=== PATIENT | female | born 1960 | race Caucasian/White ===

== ENCOUNTER 2017-05-22 21:36 | Emergency (ER) | payer MEDICAID, SELFPAY ==
[2017-05-22 21:37] VITALS: BP 158/117; PULSE 89; RESP 15; TEMP 36.7; BMI 40.4
--- NOTE | 2017-05-22 21:57 | RAD_ITS ---
STUDY: X-RAY - LEFT HAND REASON FOR EXAM: Female, 57 years old. No known injury with pain and swelling left hand and wrist. TECHNIQUE: 3 view(s) of the hand. COMPARISON: None. FINDINGS: Normal radiocarpal articulation. Normal distal radioulnar joint. Normal visualized carpal bones. Normal carpal articulations Normal carpometacarpal articulation of the thumb. Normal second through fifth carpometacarpal joints. Normal metacarpi. Normal metacarpophalangeal joint of the thumb. Normal interphalangeal joint of the thumb. Normal proximal and distal phalanges of the thumb. Normal metacarpophalangeal joints of the second through fifth fingers. Normal proximal and distal interphalangeal joints of the second through fifth fingers. Normal phalanges of the second through fifth fingers. The soft tissue structures are unremarkable. RAD/Hand Min 3 Views IMPRESSION: No evidence of acute osseous abnormality. Electronically Signed: Hamilton Grover DO at 23:09 EST , Service support ,
[2017-05-22 22:24] LABS: Absolute Lymphocyte Count 1.96 X10^3/ul (0.83-4.51); Absolute Neutrophil Count 2.5 X10^3/uL (2.0-7.7); Basophil# 0.01 X10^3/uL; Basophil% 0.2 % (0-1); Eosinophil# 0.34 X10^3/uL; Eosinophils% 6.6 % (0-5); Hematocrit 42.9 % (37-47); Hemoglobin 13.9 g/dl (12.0-15.0); Lymphocyte # 1.96 X10^3/ul (4.0); Lymphocyte % 38.2 % (19-41); Mean Corp Hgb Conc 32.4 g/gl (32-36); Mean Corpuscular Volume 98.8 fL (81-99); Mean Platelet Vol. 10.4 fl (6.2-12.0); Monocyte# 0.35 X10^3/uL; Monocyte% 6.8 % (0-10); Neutrophil # 2.46 X10^3/uL (2.7-7.7); Platelet Count 260 K/mm3 (150-450); RBC Distribution Width CV 13.5 % (11.6-14.6); RBC Distribution Width SD 48.8 fl (35.1-43.9); Red Blood Count 4.34 M/mm3 (4.2-5.4); White Blood Count 5.1 K/mm3 (4.4-11.0)
[2017-05-22 22:26] LABS: POSITIVE COUNT NO; POSITIVE DIFFERENTIAL NO; POSITIVE MORPHOLOGY NO
[2017-05-22] MEDS: Ketorolac 30 MG/ML Syringe IV (22:35)
[2017-05-22] MEDS: 0.9% Normal Saline 1,000 ML 1000 ML IV (22:35)
[2017-05-22 22:45] LABS: AST(SGOT) 20 U/L (15-37); Alanine Aminotransfer ALT/SGPT 26 U/L (13-56); Albumin, Serum 3.6 g/dL (3.2-5.0); Alkaline Phosphatase 76 U/L (45-117); Anion Gap 5 (5-15); BUN 21 mg/dL (7-18); BUN/Creat Ratio 22.3 RATIO (10-20); Calcium,Total 9.3 mg/dL (8.5-10.1); Chloride 109 mmol/L (98-107); Creatinine, Serum 0.94 mg/dL (0.55-1.02); EST Glomerular Filtration Rate 65 mL/min (>60); Est Glom Filt Rate - Afr Amer 78 mL/min (>60); Estimated Creatinine Clearance 56.33 ml/min; Globulin 3.7 g/dL (2.2-4.2); Glucose 121 mg/dL (74-106); Potassium 3.8 mmol/L (3.5-5.1); Protein, Total 7.3 g/dL (6.4-8.2); Sodium Level 142 mmol/L (136-145)
[2017-05-22 22:50] LABS: Color, Urine Yellow (Yellow); Glucose, Dipstick Normal (Normal); Ketone-Dipstick Negative (Negative); Leukocyte Esterase-Dipstick 100 /ul (Negative); Nitrite-Dipstick Positive (Negative); Occult Blood-Urine 25 /ul (Negative); Protein-Dipstick Negative (Negative); Urine Bilirubin Dipstick Negative (Negative); Urine Clarity Cloudy (Clear); Urine Urobilinogen Normal (Normal)
[2017-05-22 23:08] LABS: Bacteria 4+ /hpf (None Seen); Mucous, Urine RARE /hpf (<or=2+)
[2017-05-22 23:09] LABS: Red Blood Cells-Urine 0-5 SEEN /hpf (0-5); Squamous Epithelial Cells - UA 5-10 SEEN /hpf (5-10); White Blood Cells 5-10 SEEN /hpf (0-5)
--- NOTE | 2017-05-22 23:29 | ED.VISSUMM ---
- ER Visit Summary Date of Service: 05/22/17 Chief Complaint: [] Multiple complaints History of Present Illness: The patient is a 57 F [] complaining of diffuse myalgias, left finger/hand pain, diffuse arthritis pain, and loose stool. Denies fevers. Physical Examination: [] Afebrile, vital signs stable. Obese female no acute distress cardiovascular exam is regular rate and rhythm. Lungs are clear to auscultation. Abdomen is soft nontender. There is mild discomfort and swelling to the left long finger. No gross deformity. No signs of cellulitis or infection. Test Results: [] CBC, BMP, LFTs within normal limits. Urinalysis is dirty catch however may have borderline early infection. Left hand x-ray negative. Emergency Department Course and Treatment: [] Patient given intravenous fluids, Toradol, Phenergan. She reports on serial exam she feels improvement. She will be given a short-term prescription for antibiotics for the early UTI. She was encouraged to follow-up with her primary care physician. Treatment Plan: [] Follow-up with PCP. Outpatient antibiotic prescription. Disposition: [] Discharge, stable. Impression: [] URI UTI This note was generated with [employer] dictation software. It may contain incorrect words, spelling, and punctuation that were not noted in review of the chart prior to signing ED Disposition - Plan for ED Patient: Chief Complaint: General Illness Referrals: Luke Hutson MD [Primary Care Provider] -
--- NOTE | 2017-05-22 23:31 | ED.DEP ---
ED Disposition - Plan for ED Patient: Chief Complaint: General Illness Instructions: ED Viral Syndrome, ED UTI Cystitis Female Prescriptions: Ciprofloxacin [Cipro] 500 mg PO BID #10 tab Referrals: Luke Hutson MD [Primary Care Provider] -
[2017-05-22 23:55] VITALS: BP 152/86; PULSE 82; RESP 16; O2SAT 97
== END 2017-05-22 23:58 | disposition home or self-care (01) ==
LOC: ED 22:02
PROVIDERS: Emergency Provider Emergency Medicine; Family Provider Family Medicine; PCP Family Medicine
DX: J06.9 Acute upper respiratory infection, unspecified (principal); N39.0 Urinary tract infection, site not specified; M79.645 Pain in left finger(s); M19.90 Unspecified osteoarthritis, unspecified site; F32.9 Major depressive disorder, single episode, unspecified; K52.9 Noninfective gastroenteritis and colitis, unspecified; Z68.41 Body mass index [BMI] 40.0-44.9, adult; E66.9 Obesity, unspecified; Z79.899 Other long term (current) drug therapy; Z72.0 Tobacco use
CPT/HCPCS: 73130; 80053; 81001; 85025; 96374; 96375; 99285; A4216

== ENCOUNTER 2017-08-01 09:47 | Day surgery (SDC) | payer MEDICAID, SELFPAY ==
--- NOTE | 2017-07-26 17:00 | EKG12_ITS ---
Test Reason : PRE OP Blood Pressure : / mmHG Vent. Rate : 057 BPM Atrial Rate : 057 BPM P-R Int : 180 ms QRS Dur : 084 ms QT Int : 442 ms P-R-T Axes : 015 -06 -02 degrees QTc Int : 430 ms Sinus bradycardia Possible Inferior infarct , age undetermined Abnormal ECG Confirmed by JONATAN RODRIGUEZ ([id number]), staff editor FLORIN UGARTE ([id number]) on 07/28/2017 1:37:02 PM Referred By: Clyde Perez Confirmed By:JONATAN RODRIGUEZ
[2017-07-26 17:07] LABS: Hematocrit 40.4 % (37-47); Mean Corp Hgb Conc 32.2 g/gl (32-36); Mean Corpuscular Hgb 32.1 pg (27.0-32.0); Mean Corpuscular Volume 99.8 fL (81-99); Mean Platelet Vol. 10.1 fl (6.2-12.0); Platelet Count 246 K/mm3 (150-450); RBC Distribution Width CV 12.9 % (11.6-14.6); RBC Distribution Width SD 46.5 fl (35.1-43.9); Red Blood Count 4.05 M/mm3 (4.2-5.4); White Blood Count 4.4 K/mm3 (4.4-11.0)
[2017-07-26 17:09] LABS: Scan Indicated on CBC? Y/N NO
[2017-07-26 17:17] LABS: Anion Gap 6 (5-15); BUN 15 mg/dL (7-18); BUN/Creat Ratio 22.3 RATIO (10-20); Calcium,Total 8.7 mg/dL (8.5-10.1); Chloride 109 mmol/L (98-107); Creatinine, Serum 0.67 mg/dL (0.55-1.02); EST Glomerular Filtration Rate 96 mL/min (>60); Est Glom Filt Rate - Afr Amer 116 mL/min (>60); Glucose 75 mg/dL (74-106); Potassium 3.7 mmol/L (3.5-5.1); Sodium Level 145 mmol/L (136-145)
[2017-08-01] VITALS (7 sets, daily range): BP systolic 128–135; BP diastolic 66–85; PULSE 50–83; RESP 16–18; TEMP 36–36.9; O2SAT 93–100; BMI 39.4
--- NOTE | 2017-08-01 | IMM_PTH ---
PATIENT: JAMAAL PEÑA [place] [facility] [id number] AGE/SX: 57/F ROOM: RE08/01/[address]: Dr. Clyde Perez MD : 1960 BED: DIS: 08/01/2017 SPEC #: [id number] RECD: 08/02/17 13:54 STATUS: ANDERS REJone #: [id number] SONI: 08/01/17 00:[address]: Clyde Perez DEPT: IMMUNOHISTOCHEMISTRY RECD BY: Daniella Triplett ENTERED: 08/02/17 13:54 SP TYPE: IMMUNO OTHR DR: Dr. Luke Hutson MD Tissues: Vocal cord, NOS Procedures: p16 (initial) KI-67 (add) PHYSICIAN & [place] [id number] SPECIMEN INFORMATION: Tissue Source: Left vocal cord polyp Clinical Info: Hoarseness, neoplasm Specimen Number: [id number] CPT code: 11334, 22491 METHODOLOGY: Deparaffinized sections of prefer/formalin-fixed tissue or PAP/DQ stained slides are incubated with monoclonal/polyclonal antibodies/oligonucleotide probes. Localization is made via biotin free immunoperoxidase method. Appropriate controls are performed and reacted as expected. Results on target cell population are indicated in the following table: RESULTS: ANTIBODY / CLONE RESULT P16 (E6H4) positive, focal and patchy Ki-67 (30-9) positive, moderate These tests were developed and their performance characteristics determined by [facility]. They may not have been cleared or approved by the U.S. Food and Drug Administration. The FDA has determined that such clearance or approval is not necessary. 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 SJ:ryne 08/03/17 Case has been reviewed in consultation with Dr. Alexander who concurs with the above diagnosis. IDC:AM
--- NOTE | 2017-08-01 11:10 | VOCOB_PTH ---
PATIENT: JAMAAL PEÑA LOC: [facility] [place] U#:[id number] AGE/SX: 57/F ROOM: RE08/01/[address]: Dr. Clyde Perez MD : 1960 BED: DIS: 08/01/2017 SPEC #: [id number] RECD: 08/01/17 13:00 STATUS: ANDERS SHERIDANJone #: [id number] SONI: 08/01/17 11:[address]: Clyde Perez DEPT: SURGICAL PATHOLOGY RECD BY: Charlie Roach ENTERED: 08/01/17 13:34 SP TYPE: VOCAL CORD OTHR DR: Dr. 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 See comment. Focal ulceration and associated inflammation. Negative for invasive malignancy. SJ:ryne 08/02/17 COMMENT Immunohistochemistry ([id number]) for surrogate HPV marker (p16) is also performed and results will be reported separately. This case has been reviewed in consultation with Dr. Alexander who concurs with the above diagnosis. MICROSCOPIC DESCRIPTION Slides are reviewed. GROSS DESCRIPTION Received in fixative is one container labeled with the patient's name and designated left vocal cord polyp. The specimen consists of multiple irregular fragments of pink-brooks soft tissue that in aggregate measure 1.2 x 0.5 x 0.2 cm. The specimen is totally submitted in one cassette. / AM:ryne 08/01/17 TC:5 CPT: 90934
--- NOTE | 2017-08-01 11:26 | PCM.DC ---
You will use the following diet at home:: Other - Soft diet Your food should be the consistency of: Mechanical soft (ground) Discharge Activity: Return to Normal Activity Additional Activity Instructions:: Voice rest for 3 days. Then, arms length talking for the next week. Allergies/Adverse Reactions: Allergies morphine Allergy (Verified 07/27/17 15:53) Unknown venom-honey bee [bee venom (honey bee)] Allergy (Verified 07/27/17 15:53) Anaphylaxis Medications to take at Discharge RX: Balsalazide Disodium 750 mg PO TID 11/27/15 RX: Epinephrine [Epi Pen] 0.3 mg IM X1 PRN 11/27/15 Amoxicillin/Potassium Clav [Augmentin 875-125 Tablet] 1 each PO Q12H 07/27/17 Bupropion HCl [Wellbutrin Xl] 150 mg PO DAILY 07/27/17 Nabumetone [Relafen] 500 mg PO DAILY 07/27/17 Primary Care Physician: Luke Hutson MD [Primary Care Provider] -
--- NOTE | 2017-08-01 12:04 | PCM.OPRPT ---
Report of Operation Date of Procedure: 08/01/17 Pre-Operative Diagnosis: left vocal cord polyp Post-Operative Diagnosis: same Surgery/Procedure Performed:: microdirect laryngoscopy with excision of left vocal cord polyp Description of Surgical Findings:: left vocal cord polyp Type of Anesthesia:: General Anesthesiologist: Santhosh Mcmahan Specimen's removed: left vocal cord polyp Estimated Blood Loss (mL): minimal Description of Procedure: The patient was taken to the OR on 08/01/17. She was placed in the supine position on the OR table. She was given sufficient general anesthesia. The table was then turned 90 degrees in a clockwise fashion. A gum guard was placed on the upper gingiva. A Jako laryngoscope was inserted into the mouth and into the pharynx. The larynx was exposed. She was then placed in suspension using a Lewy suspension. The microscope was then brought in for use. A spatula was used to explore the polyp. It appeared attached to the superior mucosa of the left vocal cord. This was grasped with a cupped forcep. Up biting scissors were used to excise the polyp. This was carried to the anterior commissure. The polyp was removed. Hemostasis was achieved using topical adrenaline on a Codman. Once hemostasis was removed, the instrumentation was removed. The patient was awoken and brought to the recovery room in stable condition. Blood loss minimal, replacement none. Sponge, needle and instrument count were correct at the end of the procedure.
[2017-08-01] MEDS: Acetaminophen 325 MG Tablet 650 MG PO (13:34)
== END 2017-08-01 14:31 | disposition home or self-care (01) ==
LOC: SDC 09:47 → AC 09:48
PROVIDERS: Family Provider Family Medicine; PCP Family Medicine; Visit Provider Otolaryngology
PROC: 0CJS8ZZ Inspection of Larynx, Via Natural or Artificial Opening Endoscopic (ICD-10-PCS; CPT 31575; principal; 2017-08-01 11:05)
DX: J38.3 Other diseases of vocal cords (principal); D38.0 Neoplasm of uncertain behavior of larynx; R49.0 Dysphonia; E78.00 Pure hypercholesterolemia, unspecified; G47.30 Sleep apnea, unspecified; F17.210 Nicotine dependence, cigarettes, uncomplicated; F12.90 Cannabis use, unspecified, uncomplicated; F32.9 Major depressive disorder, single episode, unspecified; F41.9 Anxiety disorder, unspecified; Z79.899 Other long term (current) drug therapy
CPT/HCPCS: 00320; 31541; 36415; 80048; 85027; 88305; 88341; 88342; J7120; J2405

== ENCOUNTER 2017-11-02 09:30 | Outpatient (RCR) | payer MEDICAID, SELFPAY ==
--- NOTE | 2017-08-22 14:42 | HP.SP.AD_ITS ---
History - History Date of Eval: 08/17/17 Medical Diagnosis (from RX): S/p vocal cord polyp removal Date of Onset of Diagnosis: May 2017 Previous speech therapy: No Other Relevant Medical History/Diagnoses/Surgery: Sleep apnea, neck surgeries 3x ( lateral neck growths) Smoking Status: Current every day smoker Hx Smoking: Yes Years Smokin Hx Tobacco Use: Yes - Pain Is pain an issue with your current prescribed condition?: No - Personal Education History: 9th grade Occupation: retail Right Hearing Abillity: Normal Left Hearing Abillity: Normal Visual Assistive Devices: None Patients Living Arrangements: With Family Patient Allergies - Allergies Allergies morphine Allergy (Verified 07/27/17 15:53) Unknown venom-honey bee [bee venom (honey bee)] Allergy (Verified 07/27/17 15:53) Anaphylaxis Subjective Voice - Medications Mediations: welbutrin, balsalazide, bupropion, nubumetone, - Intubation Was the Client intubated: No - Intake Water (ounces): 12 Coffee (ounces): 6 Tea (ounces): 0 Soda (ounces): 48 Energy drinks (ounces): 0 Milk (ounces): 0 Juice (ounces): 0 Sports drinks (ounces): 0 - Alcoholic Beverage Intake Intake: Rarely - Other Product Usage Do you use products containing menthol (if yes, list): No Do you take Vitamin C Supplements (if yes, list amt (mg)/day: No Do you use recreational drugs (if yes, list type/amt/frequency): Yes - Occasional Voice Handicap Index (VHI) - I VHI Administered: Yes VHI: Patient completed the Voice Handicap Index, which is a 30 item, self administered questionnaire that asks an individual to describe their voice and the effects of their voice on their life. Three subscales cover the areas of functional, emotional, and physical aspects of the voice disorders. Points from the questions can be combined to assign a total score, or they can be combined by subscale. Results for the VHI are as follows: Date: 08/22/17 - VHI Test Functional: Score of 40 which is the highest possible score ( Higher is less functional voice production) These functional difficulties include being difficult to hear, having to repeat often, speaking less due to voice disorder and Physical: Score of 40. This area includes running out of air when speaking, straining to speak and voice clarity is unpredicatable. She stated that her voice is better in the morning. Emotional: Score of 30. This score reflects emotional difficulties a person has regarding the change in voice. She stated that her voice problem upsets her, people seem irritated with her voice and she is tense when speaking due to her voice. Total Severity Rating: Severe (61-120) Subjective Clinical Impression - Adult Clinical Impression Hoarseness: excessive 'noise' in the signal creating an unpleasant, rough vocal quality: Present Harshness: irregular vocal fold vibrations creating a 'raspy' or unmusical tone ; a combination of hoarseness and breathiness: Present Strained-strangled: perceived strain or pushed vocal quality at the onset of and during phonation: Present Voice deterioration: reduction of volume or vocal quality with prolonged use: Present Vocal tension: a tightness of the laryngeal musculature during voicing: Present - Non-Phonatory Behaviors/Respiration Reduced loudness or vocal weakness: Present Limited breath support for speech: Present Throat clearing/coughing: Present Objective Voice - Date of Diagnosis Previous Speech Therapy (If yes, describe): No - Objective data Objective Data: Objective data: Sound pressure level (SPL acoustic correlation of vocal loudness) was measured with a sound level meter at a distance of 40 cm from the patient's mouth. Average conversational loudness is 70-80 dB and sustained phonation duration is 15 to 20 seconds for a typical adult. 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 - Recommendations Treatment Warranted: Yes - Frequency Frequency: 1x/Week Duration: 2 Months Visits in this POC: 8 - Prognosis Prognosis: Good - Goals that are Established: Determination:: Goals will be added/modified as deemed necessary and appropriate. Therapy will be discontinued when results of re-evaluation indicate therapy is no longer needed or lack of progress has been documented. - Goal #1-5 Goal #1: Yecenia will independently utilize abdominal breathing for structured and unstructured tasks to decrease straining to speak on 4/5 trials on 3 consecutive sessions. Goal #2: Yecenia will decrease vocal abuses to less than 5 per hour session. Goal #3: Yecenia will complete relaxation techniques identify laryngeal tension/ neck tension to decrease vocal harshness and pushing/straining during speaking on 4/5 trials on 3 consecutive sessions. Goal #4: Yecenia will use easy onset to reduce vocal abuses of whispering and harsh sounds during structured and unstructured tasks on 4/5 trials on 3 consecutive sessions. Education - Patient Instruction Patient Education: Diagnosis, Treatment Plan, Goals, Safety Precautions, Home Exercise Program Person Taught: Patient Teaching Method: Discussion Response to teaching: Verbalize understanding
--- NOTE | 2018-03-01 14:55 | HP.SP.DC_ITS ---
ST Discharge Summary - Discharged: Discharge: Yecenia Martin is discharged from [facility] as of March 01, 2018. Her last visit was on 11/02/17 and she had a total of 6 visits including her initial evaluation on 08/17/17. Her last two appointments were no showed and no further visits were scheduled. Therapy focused on her voice disorder with a diagnosis of S/p vocal cord polyp removal. Yecenia was able to independently utilize abdominal breathing for structured and unstructured tasks to decrease straining while speaking. She was able to decrease vocal abuses to none during therapy. At home she continued to vape but did not report any other vocal abuses consistently. Her last goal focused on using easy onset and this was being addressed during her last sessions. She had a difficult time with this goal and it was not addressed often due to limited sessions. Loudness was increased today. Averaged 67 dB in conversation. Patient was hoarse but voice was more functional. A copy of this discharge will be sent to her referring physician.
== END 2017-11-02 19:00 | disposition home or self-care (01) ==
LOC: SP 09:30
PROVIDERS: Family Provider Family Medicine; PCP Family Medicine; Visit Provider Otolaryngology
DX: R49.0 Dysphonia (principal)
CPT/HCPCS: 92507; 92524

== ENCOUNTER 2018-11-03 18:34 | Emergency (ER) | payer OTHER, SELFPAY ==
[2018-11-03 18:34] VITALS: BMI 40.4
[2018-11-03 18:35] VITALS: BP 162/96; PULSE 83; RESP 14; TEMP 36.3; O2SAT 93; BMI 39.9
--- NOTE | 2018-11-03 19:12 | ED.DCSUM_ITS ---
History of Present Illness Chief Complaint: Lower Extremity Injury Informant: Patient Onset: Today Mechanism/Context: Fall Quality of Pain: Dull, Aching Location: Shoulders, hands and knees bilaterally Current Severity: Mild Maximum Severity: Severe Worsened by: Use of extremities Relieved by: Nothing Associated Symptoms: Negative for: Parasthesias, Weakness, Loss of function, Inability to ambulate, Loss of consciousness, Amnesia Narrative: Patient is a middle-age woman who tripped on a phone cord falling forward and bracing her fall with her hands and landing on her knees. She presents with bilateral shoulder pain, hand pain and knee pain. She was able to ambulate. She denies head trauma. She denies loss of conscious. She denies neck pain. She denies paresthesia, anesthesia or motor weakness. This occurred at work. Patient states incident occurred at 1745. Tetanus Immunization: <5 years Prior similar symptoms: No Recent Illness/Hospitalization: No - Past Medical History (1) Chronic musculoskeletal pain Status: Chronic Past Medical History - Allergies and Home Meds Allergies/Adverse Reactions: Allergies morphine Allergy (Verified 11/03/18 18:38) Unknown venom-honey bee [bee venom (honey bee)] Allergy (Verified 11/03/18 18:38) Anaphylaxis Primary Care Physician: Luke Hutson MD [Primary Care Provider] - Prior records reviewed: No Surgical History: noncontributory Lives: Spouse/ Significant Other Smoking Status: Current every day smoker Drugs: None Review of Systems Eyes: Denies: Visual changes - bilaterally, Blurred Vision - bilaterally, Diplopia Cardiovascular: Denies: Chest pain, Palpitations Respiratory: Denies: Dyspnea, Dyspnea on exertion Gastrointestinal: Denies: Nausea, Vomiting Musculoskeletal: Reports: Swelling - Right and left knee, Extremity Pain - Right and left shoulder, hand and knees. Denies: Myalgias, Arthralgias, Neck pain, Back pain Skin: Reports: Abrasions. Denies: Rash, Abscess, Wounds Neurological: Denies: Headache, Weakness, Parasthesia, Numbness, -, - Hematologic: Denies: Easy bruising, Easy bleeding Allergy: Denies: Uticaria, Swelling of the mouth Physical Exam Vital Signs/Narrative: Vital Signs Temp Pulse Resp BP Pulse Ox 11/03/18 18:35 97.4 F L 83 14 162/96 H 93 Inital Vital Signs reviewed: Yes General: Well nourished, Well developed Head: Normocephalic, Atraumatic Eyes: Perrl, EOMI. Negative for: Pale conjunctiva, Scleral icterus, - - There is no subconjunctival hemorrhage noted ENT: TM's clear, No hemotympanum or drainage, No trauma. Negative for: Hemotympanum, Otorrhea, Nasal trauma, Nasal septal hematoma Neck: Nontender, Full ROM. Negative for: Spinal Tenderness, Paraspinal Tenderness Cardiovascular: Regular rate, Regular rhythm, No murmurs, Normal S1, Normal S2 Respiratory: No distress, CTA bilaterally, Chest nontender Extremeties: Patient has full active range of motion right and left shoulder. There is no pain the patient of the clavicle or AC joint. Axillary, median, radial and ulnar function intact. Examination of the hands reveals soft tissue swelling over the thenar eminence bilaterally. There is no pain the patient over the first metacarpal or phalanges of the right or left thumb on dorsal surface. Axial loading of thumb causes no discomfort. The right and left knee are swollen. Abrasions are noted. She has pain the patient of the left and right patella. She is able to extend against gravity. There is laxity of the left MCL with valgus stress testing. Otherwise no laxity with varus varus stress testing on the right and no laxity with varus stress testing on the left. Paula's test was negative bilaterally. Modified Gal's test was negative bilaterally. Right Skin: Normal color, No rash, Trauma - Duration over the right and left patella. Negative for: Cyanosis, Diaphoresis, Jaundice Neurological: Alert, Oriented x3, Cranial nerves II-XII grossly intact, Normal Strength, Normal Sensation Psychological: Normal affect - Glascow Coma Scale Eye Opening: Spontaneous Motor: Obeys Commands Verbal: Oriented Coma Scale Total: 15 Diagnostic/Tx/Re-eval Chest X-Ray - ED: Read by ED Physician Two-view x-ray of the right and left knee were obtained. There is no evidence of fracture. There is no effusion. There is no subluxation. There is no foreign body noted. - Medical Decision Making Because there is point tenderness of the right and left patella will obtain 2 view x-ray to evaluate for patella fracture. There is soft tissue swelling noted however, there is no effusion noted and there is no joint line tenderness and reason for only 2 view versus 4 view x-ray. Since there is no current indication patient received Naprosyn 500 mg p.o. X-ray reveals no evidence of fracture. Patient was discharged with instructions of rest, ice, elevation and anti-inflammatories since there is no contraindication. ED Disposition - Plan for ED Patient: Disposition: Home or Assisted Living Diagnosis: Contusion of right knee, initial encounter, Contusion of left knee, initial encounter, Contusion of left hand, initial encounter, Contusion of right hand, initial encounter, Left shoulder strain, Strain of right shoulder, MCL sprain of left knee Instructions: CONTUSION, Lower Extremity, CONTUSION, Hand, Shoulder Sprain Prescriptions: Naproxen [Naprosyn] 500 mg PO BID #14 tab Prescription Printed Referrals: Luke Hutson MD [Primary Care Provider] - [facility] [GROUP OF PHYSICIANS] - 3-5 Days
--- NOTE | 2018-11-03 19:26 | RAD_ITS ---
STUDY: X-RAY - LEFT KNEE REASON FOR EXAM: Female, 58 years old. Pain and bruising after fall onto knees. TECHNIQUE: 2 view(s) of the knee. COMPARISON: None. FINDINGS: Normal visualized distal femur. Normal visualized proximal tibia and fibula. Normal proximal tibiofibular articulation. There is no acute fracture, dislocation or destructive osseous pathology. There is mild degenerative arthrosis of the medial femorotibial compartment. Normal lateral femorotibial compartment. There is mild degenerative arthrosis of the patellofemoral articulation. There is no demonstrated joint effusion. The soft tissue structures are unremarkable. RAD/Knee 1 or 2 Views IMPRESSION: Degenerative arthrosis. There is no acute fracture or dislocation. Electronically Signed: Keon Chinchilla DO at 19:50 EDT Tel [phone], Service support ,
--- NOTE | 2018-11-03 19:26 | RAD_ITS ---
STUDY: X-RAY - RIGHT KNEE REASON FOR EXAM: Female, 58 years old. Pain and bruising. Fall onto knees. TECHNIQUE: 2 view(s) of the knee. COMPARISON: None. FINDINGS: Normal visualized distal femur. Normal visualized proximal tibia and fibula. Normal proximal tibiofibular articulation. There is no acute fracture, dislocation or destructive osseous pathology. There is mild degenerative arthrosis of the medial femorotibial compartment. Normal lateral femorotibial compartment. There is mild degenerative arthrosis of the patellofemoral articulation. There is no demonstrated joint effusion. The soft tissue structures are unremarkable. RAD/Knee 1 or 2 Views IMPRESSION: Mild degenerative changes without acute fracture or dislocation. Electronically Signed: Keon Chinchilla DO at 19:51 EDT Tel [phone], Service support ,
[2018-11-03] MEDS: Naproxen 500 MG Tablet PO (19:45)
[2018-11-03 20:22] VITALS: BP 139/76; PULSE 73; RESP 19; O2SAT 98
== END 2018-11-03 20:23 | disposition home or self-care (01) ==
PROVIDERS: Emergency Provider Emergency Medicine; Family Provider Family Medicine; PCP Family Medicine
DX: S83.412A Sprain of medial collateral ligament of left knee, initial encounter (principal); S80.01XA Contusion of right knee, initial encounter; S80.02XA Contusion of left knee, initial encounter; S60.222A Contusion of left hand, initial encounter; S60.221A Contusion of right hand, initial encounter; S46.911A Strain of unspecified muscle, fascia and tendon at shoulder and upper arm level, right arm, initial encounter; S46.912A Strain of unspecified muscle, fascia and tendon at shoulder and upper arm level, left arm, initial encounter; W01.0XXA Fall on same level from slipping, tripping and stumbling without subsequent striking against object, initial encounter; Y93.9 Activity, unspecified; Y92.9 Unspecified place or not applicable; F17.200 Nicotine dependence, unspecified, uncomplicated
CPT/HCPCS: 73560; 99283

== ENCOUNTER 2019-06-29 14:19 | Emergency (ER) | payer MEDICAID, SELFPAY ==
[2018-11-10 10:53] VITALS: BMI 39.9
[2019-06-29 14:21] VITALS: BP 153/98; PULSE 80; RESP 22; TEMP 36.8; O2SAT 97; BMI 42.7
--- NOTE | 2019-06-29 15:06 | ED.DCSUM_ITS ---
History of Present Illness Chief Complaint: Shortness of Breath Informant: Patient Onset: Days - 4 days Context: Gradual Onset Current Severity: Moderate Maximum Severity: Moderate Narrative: Patient with head and chest congestion, cough, shortness of breath and wheezing over the past 4 days. She denies fever or chills. She has an inhaler she been using at home without improvement. She states she had nausea and vomiting last Tuesday, but then was well for 3 days before the respiratory symptoms had her. She is a long-term smoker but denies history of COPD. - Past Medical History (1) Fibromyalgia Status: Chronic (2) Anxiety and depression Status: Chronic (3) Hx of cholecystectomy Status: Chronic (4) Tobacco abuse Status: Chronic Past Medical History - Allergies and Home Meds Allergies/Adverse Reactions: Allergies morphine Allergy (Verified 06/29/19 14:23) Unknown venom-honey bee [bee venom (honey bee)] Allergy (Verified 06/29/19 14:23) Anaphylaxis Primary Care Physician: Luke Hutson MD [Primary Care Provider] - Prior records reviewed: Yes Surgical History: noncontributory Lives: Spouse/ Significant Other Smoking Status: Current every day smoker Drugs: Marijuana Review of Systems General: Denies: Chills, Fever Eyes: Denies: Visual changes - bilaterally ENT: Reports: Rhinorrhea. Denies: Bilateral ear pain, Sore throat Cardiovascular: Denies: Chest pain Respiratory: Reports: Dyspnea, Cough, Sputum Gastrointestinal: Denies: Abdominal pain, Nausea, Vomiting, Diarrhea Genitourinary: Denies: Dysuria Musculoskeletal: Denies: Extremity Pain Skin: Denies: Rash Neurological: Denies: Headache Hematologic: Denies: Easy bruising, Easy bleeding Allergy: Denies: Uticaria Physical Exam Vital Signs/Narrative: Vital Signs Temp Pulse Resp BP Pulse Ox 06/29/19 14:21 98.3 F 80 22 H 153/98 H 97 Inital Vital Signs reviewed: Yes General: Well nourished, Well developed Head: Normocephalic ENT: Moist mucous membranes Neck: Supple Cardiovascular: Regular rate, Regular rhythm Respiratory: No distress, Wheezing Abdomen: Soft, Nontender Extremities: Nontender Skin: Normal color, No rash Neurological: Alert, Oriented x3 Psychological: Normal affect Diagnostic/Tx/Re-eval Impressions Chest X-Ray 06/29/19 15:10 IMPRESSION: Normal x-ray examination of the chest. Electronically Signed: Charlie Reynolds MD at 15:27 EDT Tel , Service support , 06/29/19 15:10 Chest 1 View (Portable) [RAD] Stat - Medical Decision Making Patient was given DuoNeb followed by 2 albuterol treatments. She was given p.o. prednisone. On repeat evaluation she did have improved air movement throughout but still had wheezing. She was given a dose of doxycycline and 2 additional breathing treatments. At this time she still continues to have some wheezing. Her air movement is improved. Patient has not been hypoxic. She will be discharged with a prescription for a new albuterol inhaler, prednisone, and doxycycline. She is given return instructions. ED Disposition - Plan for ED Patient: Disposition: Home or Assisted Living Diagnosis: Viral URI, COPD exacerbation Instructions: Copd Flare, BRONCHITIS with Wheezing (Adult) Prescriptions: Prednisone [Deltasone] 60 mg PO DAILY #15 tab Transmission Status: Pending to [facility] Doxycycline 100 mg PO BID #20 cap Transmission Status: Pending to [facility] Albuterol Inhaler [Ventolin Hfa] 2 puff INHALATION Q4H PRN PRN #1 inhaler PRN Reason: Wheezing Transmission Status: Pending to [facility] Referrals: Luke Hutson MD [Primary Care Provider] - 1 Week
--- NOTE | 2019-06-29 15:10 | RAD_ITS ---
STUDY: X-RAY CHEST REASON FOR EXAM: Female, 59 years old. COUGH x4 DAYS, DYSPNEA TECHNIQUE: Single AP portable view of the chest. COMPARISON: 12/07/2014 FINDINGS: The lungs are clear and expanded. There is no demonstrated pleural abnormality. Normal size heart. Normal mediastinum and damaris. Normal visualized pulmonary arteries. Normal visualized aortic arch and descending thoracic aorta. Normal visualized thoracic spine. Normal visualized ribs, clavicles, and shoulders. There is no demonstrated abnormality of the visualized soft tissue structures of the upper abdomen. RAD/Chest 1 View (Portable) IMPRESSION: Normal x-ray examination of the chest. Electronically Signed: Charlie Reynolds MD at 15:27 EDT Tel , Service support ,
[2019-06-29 15:23] VITALS: BP 146/85; PULSE 87; RESP 16; TEMP 37.1; O2SAT 95
[2019-06-29] MEDS: Ipratropium/Albuterol Sulfate 3 ML AMPUL.NEB INHALATION (15:28)
[2019-06-29] MEDS: predniSONE 20 MG Tablet 60 MG PO (15:28)
[2019-06-29] MEDS: Albuterol 2.5 MG/3 ML VIAL.NEB. INHALATION ×4 (15:28→16:47)
[2019-06-29 15:35] VITALS: PULSE 108; RESP 20
[2019-06-29 16:00] VITALS: BP 143/86; PULSE 88; RESP 20; TEMP 36.9; O2SAT 97
[2019-06-29 16:20] VITALS: BP 143/86; PULSE 88; RESP 20; O2SAT 97
[2019-06-29] MEDS: Doxycycline 100 MG CAPSULE PO (16:33)
[2019-06-29 17:36] VITALS: BP 156/83; PULSE 99; RESP 18; O2SAT 98
== END 2019-06-29 17:46 | disposition home or self-care (01) ==
PROVIDERS: Emergency Provider Emergency Medicine; PCP Family Medicine
DX: J06.9 Acute upper respiratory infection, unspecified (principal); J44.1 Chronic obstructive pulmonary disease with (acute) exacerbation; F17.200 Nicotine dependence, unspecified, uncomplicated; F32.9 Major depressive disorder, single episode, unspecified; M79.7 Fibromyalgia; F41.9 Anxiety disorder, unspecified
CPT/HCPCS: 71045; 94640; 99283

== ENCOUNTER 2019-07-01 14:53 | Inpatient (IN) | payer MEDICAID, SELFPAY ==
[2019-07-01] VITALS (11 sets, daily range): BP systolic 135–168; BP diastolic 70–94; PULSE 63–70; RESP 16–24; TEMP 36.4–36.6; O2SAT 94–95; BMI 42.7; BMI 43.8
--- NOTE | 2019-07-01 15:07 | EKG12_ITS ---
Test Reason : SOB Blood Pressure : / mmHG Vent. Rate : 061 BPM Atrial Rate : 061 BPM P-R Int : 176 ms QRS Dur : 086 ms QT Int : 416 ms P-R-T Axes : 023 -04 -04 degrees QTc Int : 418 ms Normal sinus rhythm Nonspecific T wave abnormality Abnormal ECG Confirmed by NAVNEET MISHRA, KIMBERLI ([id number]), graphic editor FLORIN UGARTE ([id number]) on 07/05/2019 9:13:45 AM Referred By: JENNA Confirmed By:KIMBERLI TOTH MD
--- NOTE | 2019-07-01 15:09 | ED.VIS.GEN ---
History of Present Illness Chief Complaint: Shortness of Breath Informant: Patient Onset: Days - 6 days Context: Gradual Onset Timing: Waxes and wanes Current Severity: Moderate Maximum Severity: Moderate Narrative: Patient presents with increased shortness of breath. Patient was seen here in the ER 2 days ago with cough, shortness of breath, wheezing. She denies fever or chills. She was treated with prednisone, doxycycline, and albuterol. Patient reports no improvement in her symptoms after returning home. She continues to deny fever or chills. She has some rib pain bilaterally. - Past Medical History (1) Anxiety and depression Status: Chronic (2) Fibromyalgia Status: Chronic (3) Hx of cholecystectomy Status: Chronic (4) Tobacco abuse Status: Chronic Past Medical History - Allergies and Home Meds Allergies/Adverse Reactions: Allergies venom-honey bee [bee venom (honey bee)] Allergy (Verified 07/01/19 14:54) Anaphylaxis morphine Adverse Reaction (Verified 07/01/19 14:54) Vomiting Primary Care Physician: Luke Hutson MD [Primary Care Provider] - Prior records reviewed: Yes Surgical History: noncontributory Lives: Spouse/ Significant Other Smoking Status: Current every day smoker Review of Systems General: Denies: Chills, Fever Eyes: Denies: Visual changes - bilaterally ENT: Denies: Bilateral ear pain Cardiovascular: Reports: Chest pain Respiratory: Reports: Dyspnea, Cough. Denies: Sputum Gastrointestinal: Denies: Abdominal pain, Nausea, Vomiting, Diarrhea Genitourinary: Denies: Dysuria Musculoskeletal: Denies: Extremity Pain Skin: Denies: Rash Neurological: Denies: Headache Hematologic: Denies: Easy bruising, Easy bleeding Allergy: Denies: Uticaria Physical Exam Vital Signs/Narrative: Vital Signs Temp Pulse Resp BP Pulse Ox 07/01/19 14:54 97.8 F 65 24 H 135/76 H 94 Inital Vital Signs reviewed: Yes General: Well nourished, Well developed Head: Normocephalic ENT: Moist mucous membranes Neck: Supple Cardiovascular: Regular rate, Regular rhythm Respiratory: Wheezing Abdomen: Soft, Nontender Extremities: Nontender Skin: Normal color, No rash Neurological: Alert, Oriented x3, Normal Strength, Normal Sensation Psychological: Normal affect Diagnostic/Tx/Re-eval Impressions Chest X-Ray 07/01/19 15:46 IMPRESSION: Findings suspicious for pulmonary venous congestion, infectious inflammatory infiltrates cannot be excluded Electronically Signed: Tr Nick, at 16:04 EDT Tel , Service support , 07/01/19 15:46 Chest 1 View (Portable) [RAD] Stat Laboratory Results 07/01/19 07/01/19 15:30 15:30 WBC 5.2 RBC 4.18 L Hgb 13.6 Hct 43.1 MCV 103.1 H MCH 32.5 H MCHC 31.6 L RDW Std Deviation 48.4 H RDW Coeff of Radha 12.7 Plt Count 233 MPV 9.9 Immature Gran % (Auto) 0.600 Neut % (Auto) 79.1 H Lymph % (Auto) 18.0 L Harper % (Auto) 2.1 Eos % (Auto) 0.0 Baso % (Auto) 0.2 Absolute Neuts (auto) 4.1 Absolute Lymphs (auto) 0.93 Nucleated RBC % 0 Sodium 142 Potassium 3.8 Chloride 111 H Carbon Dioxide 26.0 Anion Gap 5 BUN 24 H Creatinine 0.99 Estim Creat Clear Calc 56.57 Est GFR (MDRD) Af Amer 74 Est GFR (MDRD) Non-Af 61 BUN/Creatinine Ratio 24.3 H Glucose 136 H Calcium 8.9 Troponin I < 0.015 - EKG Initial EKG Interpretation: Sinus Rhythm - Sinus at 61 with nonspecific lateral T wave flattening. - Medical Decision Making Patient recheck her steroids this morning. She was given aerosol treatments here. On repeat evaluation she continues to have expiratory wheezes, although does have increased air movement. I mistakenly thought patient had had an influenza swab performed a couple days ago. I do not see that this was done so influenza swab as well as viral panel will be sent at this time. Patient failed outpatient management. She be given a dose of Levaquin at this time. Because x-ray revealed possible pulmonary congestion versus infiltrate, BNP is also ordered. Patient be discussed with the hospitalist. ED Disposition - Plan for ED Patient: Disposition: Acute Care Hospital [facility] Diagnosis: COPD exacerbation Referrals: Luke Hutson MD [Primary Care Provider] -
[2019-07-01 15:42] LABS: Absolute Lymphocyte Count 0.93 X10^3/uL (0.83-4.51); Absolute Neutrophil Count 4.1 X10^3/uL (2.0-7.7); Basophil# 0.01 X10^3/uL; Basophil% 0.2 % (0-1); Hematocrit 43.1 % (37-47); Hemoglobin 13.6 g/dL (12.0-15.0); Lymphocyte # 0.93 X10^3/ul (4.0); Mean Corp Hgb Conc 31.6 g/dL (32-36); Mean Corpuscular Hgb 32.5 pg (27.0-32.0); Mean Corpuscular Volume 103.1 fL (81-99); Mean Platelet Vol. 9.9 fl (6.2-12.0); Monocyte# 0.11 X10^3/uL; Monocyte% 2.1 % (0-10); NRBC Flagged by Analyzer 0 % (0-5); Neutrophil # 4.09 X10^3/uL (2.7-7.7); Neutrophil % 79.1 % (47-70); POSITIVE MORPHOLOGY YES; Platelet Count 233 K/mm3 (150-450); RBC Distribution Width CV 12.7 % (11.6-14.6); RBC Distribution Width SD 48.4 fl (35.1-43.9); Red Blood Count 4.18 M/mm3 (4.2-5.4); White Blood Count 5.2 K/mm3 (4.4-11.0)
[2019-07-01 15:43] LABS: Differential Indicated SCAN CRITERIA MET
[2019-07-01] MEDS: 0.9% Normal Saline 1,000 ML 150 ML IV ×2 (15:46→20:39)
--- NOTE | 2019-07-01 15:46 | RAD_ITS ---
STUDY: X-RAY CHEST REASON FOR EXAM: Female, 59 years old. shortness of breath, seen recently for same TECHNIQUE: Portable chest COMPARISON: 06/29/2019 FINDINGS: There is mild prominence of the pulmonary vascularity. There are mild bilateral pulmonary opacities. There is no demonstrated pleural abnormality. Normal size heart. Normal mediastinum and damaris. Normal visualized pulmonary arteries. Normal visualized aortic arch and descending thoracic aorta. Normal visualized thoracic spine. Normal visualized ribs, clavicles, and shoulders. There is no demonstrated abnormality of the visualized soft tissue structures of the upper abdomen. RAD/Chest 1 View (Portable) IMPRESSION: Findings suspicious for pulmonary venous congestion, infectious inflammatory infiltrates cannot be excluded Electronically Signed: Tr Nick, at 16:04 EDT Tel , Service support ,
[2019-07-01 15:59] LABS: Anion Gap 5 (5-15); BUN 24 mg/dL (7-18); BUN/Creat Ratio 24.3 RATIO (10-20); Calcium,Total 8.9 mg/dL (8.5-10.1); Chloride 111 mmol/L (98-107); Creatinine, Serum 0.99 mg/dL (0.55-1.02); EST Glomerular Filtration Rate 61 mL/min (>60); Est Glom Filt Rate - Afr Amer 74 mL/min (>60); Estimated Creatinine Clearance 56.57 ml/min; Glucose 136 mg/dL (74-106); Potassium 3.8 mmol/L (3.5-5.1); Sodium Level 142 mmol/L (136-145)
[2019-07-01 16:15] LABS: Differential Comment SCANNED
[2019-07-01 16:23] LABS: Lactic Acid 2.3 mmol/L (0.4-1.9)
--- NOTE | 2019-07-01 16:40 | HP.PCM_ITS ---
Problem List (1) Lactic acidosis Status: Acute (2) Fibromyalgia Status: Chronic (3) Anxiety and depression Status: Chronic (4) COPD exacerbation Status: Acute (5) Tobacco abuse Status: Chronic (6) Obstructive sleep apnea Status: Chronic History of Present Illness The patient is a 59 year old F [] Past Medical History Past Medical History (Chronic Problems): Chronic Problems (Last Updated 11/10/18 @ 10:53 by Berna Paz) Fibromyalgia (Chronic) Anxiety and depression (Chronic) Hx of cholecystectomy (Chronic) Obstructive sleep apnea (Chronic) Contusion of right shoulder, initial encounter (Chronic) Tobacco abuse (Chronic) Chronic musculoskeletal pain (Chronic) Medical History: Medical History (Last Updated 11/10/18 @ 10:53 by Berna Paz) Arthritis M19.90 Colitis K52.9 Incontinence R32 Knee pain M25.569 Shoulder pain M25.519 Chronic neck and back pain M54.2, M54.9, G89.29 Allergies venom-honey bee [bee venom (honey bee)] Allergy (Verified 07/01/19 14:54) Anaphylaxis morphine Adverse Reaction (Verified 07/01/19 14:54) Vomiting Home Medications: Ambulatory Orders Medication Instructions Recorded Balsalazide Disodium 750 mg PO TID 11/27/15 Epi Pen (for allergic rxn) 0.3 mg IM X1 PRN 11/27/15 Bupropion HCl [Wellbutrin Xl] 150 mg PO DAILY 07/27/17 Nabumetone [Relafen] 500 mg PO DAILY 07/27/17 Albuterol Inhaler [Ventolin Hfa] 2 puff INHALATION Q4H PRN PRN #1 06/29/19 inhaler Doxycycline 100 mg PO BID #20 cap 06/29/19 Emtricitabine/Tenofovir (Tdf) 1 tab PO DAILY 06/29/19 [Truvada 200 mg-300 mg Tablet] Mirabegron [Myrbetriq] 50 mg PO DAILY 06/29/19 Prednisone [Deltasone] 60 mg PO DAILY #15 tab 06/29/19 Surgical History: noncontributory Lives: Spouse/ Significant Other Smoking Status: Current every day smoker Tobacco Use: Cigarettes Patient Problems: Active and Suspected Problems (Last Updated 11/10/18 @ 10:53 by Berna Paz) COPD exacerbation (Acute) Lactic acidosis (Acute) - Physical Exam Vitals/I&O's: Vital Signs Temp Pulse Resp BP Pulse Ox 97.8 F 65 18 141/75 H 95 07/01/19 14:54 07/01/19 15:41 07/01/19 15:41 07/01/19 15:41 07/01/19 15:41 Oxygen Delivery Method Room Air Weight: 265 lb Body Mass Index (BMI) 42.7 Laboratory Results 07/01/19 15:30: WBC 5.2, RBC 4.18 L, Hgb 13.6, Hct 43.1, MCV 103.1 H, MCH 32.5 H , MCHC 31.6 L, RDW Std Deviation 48.4 H, RDW Coeff of Radha 12.7, Plt Count 233, MPV 9.9, Immature Gran % (Auto) 0.600, Neut % (Auto) 79.1 H, Lymph % (Auto) 18.0 L, Wise % (Auto) 2.1, Eos % (Auto) 0.0, Baso % (Auto) 0.2, Absolute Neuts (auto) 4.1, Absolute Lymphs (auto) 0.93, Nucleated RBC % 0, Differential Comment SCANNED 07/01/19 15:30: Sodium 142, Potassium 3.8, Chloride 111 H, Carbon Dioxide 26.0, Anion Gap 5, BUN 24 H, Creatinine 0.99, Estim Creat Clear Calc 56.57, Est GFR (MDRD) Af Amer 74, Est GFR (MDRD) Non-Af 61, BUN/Creatinine Ratio 24.3 H, Glucose 136 H, Calcium 8.9, Troponin I < 0.015 07/01/19 15:30: Lactic Acid 2.3 H* 07/01/19 15:30: B-Natriuretic Peptide Pending Current Medications Sodium Chloride () 1,000 mls @ 150 mls/hr IV .[id number] DARCY Last Admin: 07/01/19 15:46 Dose: 150 mls/hr Documented by: Levofloxacin (Levaquin Iv) 750 mg in 150 mls @ 100 mls/hr IV X1 ONE Stop: 07/01/19 17:38 Assessment/Plan All Active Problems (Last Updated 11/10/18 @ 10:53 by Berna Paz) COPD exacerbation (Acute) Lactic acidosis (Acute) Left shoulder strain (Acute) Sprain of medial collateral ligament of left knee, initial encounter (Acute) Contusion of left knee, initial encounter (Acute) Strain of unspecified muscle, fascia and tendon at shoulder and upper arm level, right arm, initial encounter (Acute) Contusion of left hand, initial encounter (Acute) Contusion of right knee, initial encounter (Acute) Contusion of right wrist, initial encounter (Acute)
[2019-07-01 16:44] LABS: BNP,B-Type NATRIURETIC PEPTIDE 78.1 pg/mL (0-100)
[2019-07-01] MEDS: levoFLOXacin IV 750 MG/150 ML BAG 100 MG IV (16:52)
--- NOTE | 2019-07-01 17:32 | PCM.HP.STD ---
Problem List (1) Lactic acidosis Status: Acute (2) Fibromyalgia Status: Chronic (3) Anxiety and depression Status: Chronic (4) COPD exacerbation Status: Acute Comment: suspected COPD....has never had PFT's (5) Tobacco abuse Status: Chronic (6) Obstructive sleep apnea Status: Chronic Comment: not treated (7) Morbid obesity with BMI of 40.0-44.9, adult Status: Chronic (8) Hyperglycemia Status: Acute (9) Ulcerative colitis Status: Chronic History of Present Illness Date of Admission: 07/01/19 Chief Complaint: cough, SOB, CP with coughing, sore throat The patient is a 59 year old F with a PMH of fibromyalgia, tobacco dependence, morbid obesity, CAROLYN ( untreated), anxiety/depression and DDD who presented to the Ed at [facility] on 07/01/2019 c/o SOB, dry cough, sore throat, chest pain due to coughing. she denies fevers but she is on a NSAID chronically and this may be suppressing the fever. She had a flu shot this year and she has pneumovac in the past. She has not travelled outside of the country recently and she is not in association with anybody who has recently traveled outside the country or been on a cruise ship. She has also not traveled outside of the [facility]. The cough is nonproductive. She has been using prednisone and an albuterol inhaler at home with no improvement. Vital signs at presentation to the emergency room were temperature 97.8, pulse rate 65, blood pressure 135/76, respiratory rate 24 and she was 94% saturated on room air. The white blood cell count was 5.2 with 79% neutrophils. The hemoglobin is 13.6 with an MCV of 103.1. Platelets are within normal limits. BMP is remarkable for an elevated BUN at 24 with a creatinine of 0.99 and a BUN/creatinine ratio of 24.2. Lactic acid is increased at 2.3. Troponin is less than 0.015. BNP is pending. Influenza swab and respiratory panel are pending. Blood cultures have been sent. Chest x-ray shows increased interstitial markings with possible infiltrate versus atelectasis in the right base. On PE she has diffuse wheezing in all lung roca and no rales. She is tachypneic. She is being admitted to the hospital for acute exacerbation of suspected COPD and possible pneumonia. She will be under droplet precautions. She lives with a grandson who is HIV positive and she is on Truvada? Past Medical History Past Medical History (Chronic Problems): Chronic Problems (Last Reviewed 07/01/19 @ 17:[address] Jaz Sharif, ) Fibromyalgia (Chronic) Anxiety and depression (Chronic) Hx of cholecystectomy (Chronic) Obstructive sleep apnea (Chronic) not treated Morbid obesity with BMI of 40.0-44.9, adult (Chronic) Ulcerative colitis (Chronic) Contusion of right shoulder, initial encounter (Chronic) Tobacco abuse (Chronic) Chronic musculoskeletal pain (Chronic) Medical History: Medical History (Last Reviewed 07/01/19 @ 17:[address] Jaz Sharif, ) Arthritis M19.90 Colitis K52.9 Incontinence R32 Knee pain M25.569 Shoulder pain M25.519 Chronic neck and back pain M54.2, M54.9, G89.29 Allergies venom-honey bee [bee venom (honey bee)] Allergy (Verified 07/01/19 14:54) Anaphylaxis morphine Adverse Reaction (Verified 07/01/19 14:54) Vomiting Home Medications: Ambulatory Orders Medication Instructions Recorded Balsalazide Disodium 750 mg PO TID 11/27/15 Epi Pen (for allergic rxn) 0.3 mg IM X1 PRN 11/27/15 Bupropion HCl [Wellbutrin Xl] 150 mg PO QHS 07/27/17 Nabumetone [Relafen] 500 mg PO DAILY 07/27/17 Albuterol Inhaler [Ventolin Hfa] 2 puff INHALATION Q4H PRN PRN #1 06/29/19 inhaler Doxycycline 100 mg PO BID #20 cap 06/29/19 Emtricitabine/Tenofovir (Tdf) 1 tab PO DAILY 06/29/19 [Truvada 200 mg-300 mg Tablet] Mirabegron [Myrbetriq] 50 mg PO DAILY 06/29/19 Prednisone [Deltasone] 60 mg PO DAILY #15 tab 06/29/19 Surgical History: noncontributory, cholecystectomy, - - cervical conization, colonoscopy with bx - being treated for ulcerative colitis, many surgeries on the neck for what sounds like and extensive AVM Psychiatric History: Anxiety, Depression [employer] History: - - cervical dysplasia.....S/P cervical conization Lives: Spouse/ Significant Other Smoking Status: Current every day smoker Tobacco Use: Cigarettes - 1 PPD since she was a teenager Alcohol: Rare Drugs: - - uses CBD - *Family History Maternal History Items: Diabetes Paternal History Items: No pertinent history Sibling History Items: Cancer - Sister with breast cancer and a brother she thinks of cancer....she does not know the primary Review of Systems Constitutional: Reports: Malaise. Denies: Anorexia, Chills, Fever, Weakness, Weight Change Eyes: Denies: Blurred vision HEENT: Reports: Nasal Congestion, Sore Throat. Denies: Difficulty Hearing, Difficulty Swallowing, Ear Pain, Head Aches, Sinus Congestion, Sinus Drainage Cardiovascular: Reports: Chest Pain - with coughing, Light Headedness - chronic. Denies: Edema, Orthopnea, Palpitations Respiratory: Reports: Cough - dry, Shortness of Breath, Shortness of breath upon exertion. Denies: Hemoptysis, Pleuritic Pain, Shortness of breath at rest, Sputum production Gastrointestinal: Denies: Abdominal Pain, Constipation, Diarrhea, Nausea, Vomiting Genitourinary: Denies: Dysuria Gynecological: Denies: Vaginal discharge Musculoskeletal: Reports: Joint Tenderness, Muscle pain - chronic....has tried Neurontin and also Lyrica and they made her confused, -. Denies: Joint Pain Skin: Denies: Rash, Wounds Neurological: Denies: Balance problems, Confusion, Difficulty swallowing, Focal weakness, Numbness, Tingling, Tremor, Seizures Psychiatric: Reports: Anxiety, Depression. Denies: Homicidal Ideations, Suicidal Ideations Endocrine: Denies: Hx of Thyroiditis Hematologic/ Lymphatic: Denies: Easy Bruising, Easy Bleeding, Hx of blood clot VTE Information - Inpt Only VTE Present on Admission: No VTE Mechan Device Prophylaxis: None VTE Pharm Prophylaxis ordered?: Yes Patient Problems: Active and Suspected Problems (Last Reviewed 07/01/19 @ 17:[address] Jaz Sharif DO) COPD exacerbation (Acute) suspected COPD....has never had PFT's Lactic acidosis (Acute) Hyperglycemia (Acute) - Physical Exam Vitals/I&O's: Vital Signs Temp Pulse Resp BP Pulse Ox 97.9 F 70 22 H 168/88 H 95 07/01/19 16:54 07/01/19 16:54 07/01/19 16:54 07/01/19 16:54 07/01/19 16:54 Oxygen Delivery Method Room Air Weight: 265 lb Body Mass Index (BMI) 42.7 General: Alert, Oriented x3, Cooperative, Well developed, Well nourished, - - she is coughing, danay with taking deep breaths, and is somewhat tachypneic HEENT: Atraumatic, PERRLA, EOMI, Normocephalic, - - Posterior pharynx is injected with no exudate Oral: No Gingival or Mucosal Lesions/ Ulcerations, Dry Mucosa Neck: Supple, No Nodes, No Nuchal Rigidity, Trachea Midline Lungs: No rales, Diminished, Short of Breath, Tachypneic, Wheezes - Inspiratory and expiratory throughout all posterior lung roca Cardiovascular: Regular rate, Regular Rhythm, Normal S1, Normal S2, No murmurs - Heart sounds are very distant and it is difficult to hear over the marked increase in respiratory wheezing so could have missed a murmur, No rub noted, No Gallop Abdomen: Bowel Sounds Present, Soft, Non Tender, Non-Distended, Obese Extremities: No clubbing, No cyanosis, No edema, Capillary Refill Less than 3 Seconds, No Calf Tenderness, Peripheral Pulses Normal Skin: No rashes, No breakdown Musculoskeletal: No Muscle Wasting Neurological: Cranial nerves II-XII grossly intact, Neuro grossly intact Psych/Mental Status: Normal Affect, Appropriate Laboratory Results 07/01/19 15:30: WBC 5.2, RBC 4.18 L, Hgb 13.6, Hct 43.1, MCV 103.1 H, MCH 32.5 H, MCHC 31.6 L, RDW Std Deviation 48.4 H, RDW Coeff of Radha 12.7, Plt Count 233, MPV 9.9, Immature Gran % (Auto) 0.600, Neut % (Auto) 79.1 H, Lymph % (Auto) 18.0 L, Gentry % (Auto) 2.1, Eos % (Auto) 0.0, Baso % (Auto) 0.2, Absolute Neuts (auto) 4.1, Absolute Lymphs (auto) 0.93, Nucleated RBC % 0, Differential Comment SCANNED 07/01/19 15:30: Sodium 142, Potassium 3.8, Chloride 111 H, Carbon Dioxide 26.0, Anion Gap 5, BUN 24 H, Creatinine 0.99, Estim Creat Clear Calc 56.57, Est GFR (MDRD) Af Amer 74, Est GFR (MDRD) Non-Af 61, BUN/Creatinine Ratio 24.3 H, Glucose 136 H, Calcium 8.9, Troponin I < 0.015 07/01/19 15:30: Lactic Acid 2.3 H* 07/01/19 15:30: B-Natriuretic Peptide 78.1 Current Medications Sodium Chloride () 1,000 mls @ 150 mls/hr IV .[id number] DARCY Last Admin: 07/01/19 15:46 Dose: 150 mls/hr Documented by: Levofloxacin (Levaquin Iv) 750 mg in 150 mls @ 100 mls/hr IV X1 ONE Stop: 07/01/19 17:38 Last Admin: 07/01/19 16:52 Dose: 100 mls/hr Documented by: Assessment/Plan All Active Problems (Last Reviewed 07/01/19 @ 17:[address] Jaz Sharif, DO) COPD exacerbation (Acute) Lactic acidosis (Acute) Hyperglycemia (Acute) Left shoulder strain (Acute) Sprain of medial collateral ligament of left knee, initial encounter (Acute) Contusion of left knee, initial encounter (Acute) Strain of unspecified muscle, fascia and tendon at shoulder and upper arm level, right arm, initial encounter (Acute) Contusion of left hand, initial encounter (Acute) Contusion of right knee, initial encounter (Acute) Contusion of right wrist, initial encounter (Acute) Impressions 1. Acute exacerbation of suspected COPD -[id number] aerosolized bronchodilators, antibiotics, intravenous steroids. I advised her to follow up with pulmonology following recovery for PFT's and to get set up for CPAP or BIPAP. 2. possible bibasilar pneumonia - vs scarring and/or atelectasis Rocephin and azithromycin ordered. Urine for Legionella and streptococcal antigens. Sputum Gram stain and culture. Influenza swab is negative. Respiratory panel pending. 3. Lactic acidosis-I suspect this may be due to dehydration as her BUN/creatinine ratio is increased at 24.3. Will hydrate and recheck. 4. Hyperglycemia with no history of diabetes mellitus. Hemoglobin A1c was ordered. 5. Morbid obesity/Fibromyalgia/degenerative disc disease/chronic back pain/tobacco dependence/ulcerative colitis/anxiety/depression/known obstructive sleep apnea-not currently wearing CPAP or BiPAP -chronic medical conditions which complicate care, management, recovery and prognosis CXR Sputum for GM stain C&S Influenza swab Respiratory panel Legionella and Streptococcal antigens in the urine Around the clock aerosol treatments and Q 2H ALbuterol aerosols for wheezing/SOB High dose IV steroids Incentive spirometry DVT prophylaxis - Lovenox Ambulatory pulse ox prior to DC Smoking cessation counselling given Nicotine patch ordered Blood cultures ?2 Mucinex 1200 mg twice daily This pt is on Truvada BUT, she denies having HIV. She lives with family and there is a young male in the house who has HIV......she tells me she is on Truvada because of this? Will check an HIV and also a hep Panel Inpatient E&M: 04803 Init Hosp L2
[2019-07-01 19:37] LABS: Reflex Lactate? Y
[2019-07-01 19:49] LABS: Hemoglobin A1c 5.7 % (4.2-6.3)
[2019-07-01] MEDS: Ipratropium/Albuterol Sulfate 3 ML AMPUL.NEB INHALATION ×2 (19:55→23:47)
[2019-07-01] MEDS: Ceftriaxone 1 GM/50 ML BAG IV (20:33)
[2019-07-01 21:09] LABS: Lactic Acid 2.2 mmol/L (0.4-1.9)
[2019-07-01] MEDS: 0.9% Saline Lock 10 ML Syringe IV (21:38)
[2019-07-01] MEDS: Famotidine 20 MG Tablet PO (21:39)
[2019-07-01] MEDS: guaiFENesin 1,200 MG Tablet 1200 MG PO (21:39)
[2019-07-01] MEDS: Docusate Sodium 100 MG Capsule PO (21:39)
[2019-07-01] MEDS: BALSALAZIDE DISODIUM 750 MG CAPSULE PO (21:39)
[2019-07-01] MEDS: buPROPion (XL) 150 MG TABLET.XL PO (22:14)
[2019-07-01] MEDS: EMTRICITABINE/TENOFOVIR 1 TABLET TABLET PO (22:14)
--- NOTE | 2019-07-01 22:45 | PCM.HOSP.N ---
Hospitalist Note Respiratory viral panel with + human metapneumo.
[2019-07-02] VITALS (16 sets, daily range): BP systolic 126–146; BP diastolic 71–88; PULSE 60–91; RESP 16–20; TEMP 36.3–37.2; O2SAT 93–95
[2019-07-02] MEDS: 0.9% Normal Saline 1,000 ML 150 ML IV ×2 (03:25→09:42)
[2019-07-02] MEDS: Ipratropium/Albuterol Sulfate 3 ML AMPUL.NEB INHALATION ×6 (03:43→23:03)
[2019-07-02] MEDS: BALSALAZIDE DISODIUM 750 MG CAPSULE PO ×3 (06:08→21:30)
[2019-07-02 07:07] LABS: Mean Corp Hgb Conc 32.5 g/dL (32-36); Mean Corpuscular Hgb 33.2 pg (27.0-32.0); Mean Platelet Vol. 10.2 fl (6.2-12.0); Platelet Count 232 K/mm3 (150-450); RBC Distribution Width CV 12.7 % (11.6-14.6); RBC Distribution Width SD 47.9 fl (35.1-43.9); Red Blood Count 3.92 M/mm3 (4.2-5.4); White Blood Count 6.8 K/mm3 (4.4-11.0)
[2019-07-02 07:33] LABS: ALB/GLOB Ratio 0.8 RATIO (0.9-2.4); AST(SGOT) 27 U/L (15-37); Alanine Aminotransfer ALT/SGPT 19 U/L (13-56); Albumin, Serum 3.2 g/dL (3.2-5.0); Alkaline Phosphatase 80 U/L (45-117); Anion Gap 8 (5-15); BUN 17 mg/dL (7-18); BUN/Creat Ratio 19.4 RATIO (10-20); Calcium,Total 8.8 mg/dL (8.5-10.1); Chloride 109 mmol/L (98-107); Creatinine, Serum 0.88 mg/dL (0.55-1.02); EST Glomerular Filtration Rate 70 mL/min (>60); Est Glom Filt Rate - Afr Amer 85 mL/min (>60); Estimated Creatinine Clearance 63.64 ml/min; Glucose 117 mg/dL (74-106); Magnesium 2.1 mg/dL (1.6-2.6); Protein, Total 7.2 g/dL (6.4-8.2); Sodium Level 141 mmol/L (136-145)
[2019-07-02] MEDS: Etodolac 200 MG Capsule PO (08:32)
[2019-07-02] MEDS: Mirabegron 50 MG TAB.ER.24H PO (08:32)
[2019-07-02] MEDS: Enoxaparin 40 MG/0.4 ML Syringe SC (08:32)
[2019-07-02] MEDS: guaiFENesin 1,200 MG Tablet 1200 MG PO ×2 (08:32→21:30)
[2019-07-02] MEDS: Famotidine 20 MG Tablet PO ×2 (08:32→21:30)
[2019-07-02] MEDS: Docusate Sodium 100 MG Capsule PO ×2 (08:32→21:30)
[2019-07-02 11:03] LABS: HIV - WCH Non-Reactive (Nonreactive)
[2019-07-02] MEDS: 0.9% Saline Lock 10 ML Syringe IV ×2 (13:30→21:31)
--- NOTE | 2019-07-02 13:56 | CASEMGMT ---
KARTHIK MORALES assessment: Face to Face with patient for initial transition planning/care coordination assessment. KARTHIK MORALES introduced self and role at [facility], pt voices understanding and consents to assessment at this time. Pt is sitting up in bed in no distress at this time. Pt is A/Ox4 at this time and answers all questions appropriately at this time. Care providers, pharmacy, and demographics verified at this time. Presentation: Increased SOB, recent ED visit for same Admitting dx: Acute exacerbation suspected COPD, possible PNA PCP: Caryl Specialists: CHANDAN Best ID Preferred [facility]acy: [facility] Insurance: [facility] Prescription Benefit: [facility] Living Will/HPOA: Pt states does not have LW/HPOA but would like AD info at this time. Shaina WALLACE aware, voices understanding. LNOK: Skye Dodge, daughter; Adalid Millan, sig other Living Arrangements: Pt states lives with sig other, son, grandson, son's sig other in 2 story home and states no concerns at home at this time. Pt states is independent with ADL's. Transportation: Pt states drives self and states no transportation concerns at this time. DME/HHC: Pt states no current DME or need for any at this time. Pt states no hx of HHC or SNF in the past. Pt states no concerns with going home at time of discharge. 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 Pt states smokes about a pack/day and drinks ETOH occasionally. Pt states no further concerns/needs at this time. CM to follow for any further discharge planning/needs. Advised pt to ask for CM if any further questions/concerns/needs arise, voices understanding. Pt Goal: Home Plan[place] KARTHIK MORALES
[2019-07-02] MEDS: Acetaminophen 325 MG Tablet 650 MG PO ×2 (14:28→21:30)
--- NOTE | 2019-07-02 14:28 | PCM.PROGNOTE ---
<Erma Hernandez - Last Filed: 07/02/19 14:44> Patient Problems: Active and Suspected Problems (Last Reviewed 07/01/19 @ 17:[address] Jaz Sharif DO) COPD exacerbation (Acute) suspected COPD....has never had PFT's Lactic acidosis (Acute) Hyperglycemia (Acute) Subjective: Patient seen and examined. Continues to have shortness of breath and wheezing. Nonproductive cough. Denies fever, chills. - Physical Exam Vitals/I&O's: Vital Signs Temp Pulse Resp BP Pulse Ox 98.9 F 64 16 146/88 H 94 07/02/19 09:25 07/02/19 11:19 07/02/19 11:19 07/02/19 09:25 07/02/19 09:25 Oxygen Delivery Method Room Air Weight: 271 lb 9.752 oz Body Mass Index (BMI) 43.8 Intake and Output for Last 24 Hours 06/30/19 07/01/19 07/02/19 23:59 23:59 23:59 Intake Total 1585 / 1585 2817.5 / 2817.5 Balance 1585 / 1585 2817.5 / 2817.5 General: Alert, Oriented x3, Cooperative HEENT: Atraumatic, PERRLA, EOMI, Normocephalic Neck: Supple, No JVD, Negative Carotid Bruits Lungs: Diminished, Wheezes Cardiovascular: Regular rate, Regular Rhythm, Normal S1, Normal S2, No murmurs Abdomen: Bowel Sounds Present, Soft, Non Tender, Non-Distended, Obese Extremities: No clubbing, No cyanosis, No edema, Capillary Refill Less than 3 Seconds Skin: No rashes, No breakdown Musculoskeletal: No Tenderness to Palpation of Joints or Extremities Neurological: Cranial nerves II-XII grossly intact, Neuro grossly intact Psych/Mental Status: Normal Affect, Appropriate Microbiology Past 72 Hours 07/01/19 17:20 Mucosa - Nose Respiratory Panel (PCR) - Final Human Mulberry 07/01/19 22:05 Urine, Clean Catch Streptococcus pneumoniae Antigen (M - Final 07/01/19 22:05 Urine, Clean Catch Legionella Antigen - Final 07/01/19 17:20 Mucosa - Nose Influenza Types A,B Direct FA (ALBERTO) - Final Laboratory Results 07/01/19 15:30: WBC 5.2, RBC 4.18 L, Hgb 13.6, Hct 43.1, MCV 103.1 H, MCH 32.5 H, MCHC 31.6 L, RDW Std Deviation 48.4 H, RDW Coeff of Radha 12.7, Plt Count 233, MPV 9.9, Immature Gran % (Auto) 0.600, Neut % (Auto) 79.1 H, Lymph % (Auto) 18.0 L, Meagher % (Auto) 2.1, Eos % (Auto) 0.0, Baso % (Auto) 0.2, Absolute Neuts (auto) 4.1, Absolute Lymphs (auto) 0.93, Nucleated RBC % 0, Differential Comment SCANNED 07/01/19 15:30: Sodium 142, Potassium 3.8, Chloride 111 H, Carbon Dioxide 26.0, Anion Gap 5, BUN 24 H, Creatinine 0.99, Estim Creat Clear Calc 56.57, Est GFR (MDRD) Af Amer 74, Est GFR (MDRD) Non-Af 61, BUN/Creatinine Ratio 24.3 H, Glucose 136 H, Calcium 8.9, Troponin I < 0.015 07/01/19 15:30: Lactic Acid 2.3 H* 07/01/19 15:30: B-Natriuretic Peptide 78.1 07/01/19 19:19: Hemoglobin A1c 5.7 07/01/19 20:21: Lactic Acid 2.2 H* 07/02/19 06:30: WBC 6.8, RBC 3.92 L, Hgb 13.0, Hct 40.0, MCV 102.0 H, MCH 33.2 H, MCHC 32.5, RDW Std Deviation 47.9 H, RDW Coeff of Radha 12.7, Plt Count 232, MPV 10.2 07/02/19 06:30: Sodium 141, Potassium 4.0, Chloride 109 H, Carbon Dioxide 24.0, Anion Gap 8, BUN 17, Creatinine 0.88, Estim Creat Clear Calc 63.64, Est GFR (MDRD) Af Amer 85, Est GFR (MDRD) Non-Af 70, BUN/Creatinine Ratio 19.4, Glucose 117 H, Calcium 8.8, Magnesium 2.1, Total Bilirubin 0.20, AST 27, ALT 19, Alkaline Phosphatase 80, Total Protein 7.2, Albumin 3.2, Globulin 4.0, Albumin/Globulin Ratio 0.8 L 07/02/19 06:30: Hepatitis A IgM Ab Pending, Hepatitis A Ab Total Pending, Hep Bs Antigen Pending, Hep B Core Total Ab Pending, Hep B Core IgM Ab Pending 07/02/19 06:30: HIV 1&2 Antibody Non-Reactive Current Medications Acetaminophen (Tylenol) 650 mg PO Q6H PRN PRN PRN Reason: Pain Score 1-10/Temp > 100.7 F Al Hydroxide/Mg Hydroxide (Mylanta Ii) 30 ml PO Q6H PRN PRN PRN Reason: Gastric Burning Albuterol Sulfate (Ventolin Aerosols) 2.5 mg INHALATION Q2H PRN PRN PRN Reason: Shortness of Breath/Wheezing Albuterol/Ipratropium (Duoneb) 3 ml INHALATION Q4H.RT [facility] Last Admin: 07/02/19 11:19 Dose: 3 ml Documented by: Balsalazide (Balsalazide Disodium) 750 mg PO TID [facility] Last Admin: 07/02/19 13:31 Dose: 750 mg Documented by: Bupropion HCl (Wellbutrin Xl) 150 mg PO QHS [facility] Last Admin: 07/01/19 22:14 Dose: 150 mg Documented by: Docusate Sodium (Colace) 100 mg PO BID [facility] Last Admin: 07/02/19 08:32 Dose: 100 mg Documented by: Emtricitabine/Tenofovir (Truvada 200 Mg-300 Mg Tablet) 1 tablet PO QHS [facility] Last Admin: 07/01/19 22:14 Dose: 1 tablet Documented by: Enoxaparin Sodium (Lovenox) 40 mg SC DAILY [facility] Last Admin: 07/02/19 08:32 Dose: 40 mg Documented by: Etodolac (Lodine) 200 mg PO DAILY [facility] Last Admin: 07/02/19 08:32 Dose: 200 mg Documented by: Famotidine (Pepcid) 20 mg PO BID [facility] Last Admin: 07/02/19 08:32 Dose: 20 mg Documented by: Guaifenesin (Mucinex) 1,200 mg PO BID [facility] Last Admin: 07/02/19 08:32 Dose: 1,200 mg Documented by: Azithromycin 500 mg/ Dextrose 255 mls @ 250 mls/hr IV Q24 [facility] Last Infusion: 07/02/19 09:42 Dose: Infused Documented by: Ceftriaxone Sodium (Rocephin) 1 gm in 50 mls @ 100 mls/hr IV Q24H DARCY Sodium Chloride () 250 mls @ 15 mls/hr IV .[id number] PRN PRN Reason: Saline Flush Sodium Chloride () 250 mls @ 15 mls/hr IV .[id number] PRN PRN Reason: Additional IVPB Infusion Magnesium Hydroxide (Milk Of Magnesia) 30 ml PO DAILY PRN PRN PRN Reason: Constipation Methylprednisolone (Solu-Medrol) 40 mg IV Q8 [facility] Last Admin: 07/02/19 13:31 Dose: 40 mg Documented by: Mirabegron (Myrbetriq) 50 mg PO DAILY [facility] Last Admin: 07/02/19 08:32 Dose: 50 mg Documented by: Nicotine (Nicoderm Cq (Pbkc)) 21 mg TRANSDERM. DAILY [facility] Last Admin: 07/02/19 08:32 Dose: 21 mg Documented by: Ondansetron HCl (Zofran) 4 mg IV Q8H PRN PRN PRN Reason: NAUSEA/VOMITING Prochlorperazine Edisylate (Compazine Iv) 5 mg IV Q4H PRN PRN PRN Reason: Breakthrough nausea/vomiting Sodium Chloride () 10 - 40 ml IV UD PRN PRN Reason: SALINE FLUSH Last Admin: 07/02/19 13:30 Dose: 10 ml Documented by: Throat Lozenges (Cepacol Sore Throat Lozenge) 1 lozenge MUCOUS MEM Q2H PRN PRN PRN Reason: SORE THROAT Medical Necessity - Tobacco Use Smoking Status: Current every day smoker Tobacco Use: Cigarettes Assessment/Plan All Active Problems (Last Reviewed 07/01/19 @ 17:[address] Jaz Sharif DO) COPD exacerbation (Acute) Lactic acidosis (Acute) Hyperglycemia (Acute) Left shoulder strain (Acute) Sprain of medial collateral ligament of left knee, initial encounter (Acute) Contusion of left knee, initial encounter (Acute) Strain of unspecified muscle, fascia and tendon at shoulder and upper arm level, right arm, initial encounter (Acute) Contusion of left hand, initial encounter (Acute) Contusion of right knee, initial encounter (Acute) Contusion of right wrist, initial encounter (Acute) 1. Acute exacerbation of COPD secondary to human metapneumovirus with possible bibasilar pneumonia versus scarring and/or atelectasis-chest x-ray admission with possible infiltrates. IV azithromycin and IV Rocephin empirically. IV Solu-Medrol. Albuterol and DuoNeb aerosols. Patient will need outpatient follow-up with pulmonary medicine for PFTs. Blood cultures pending. Oxygen stable on room air. Repeat chest x-ray in a.m. 2. Chronic back pain-as needed pain regimen. 3. Morbid obesity-encouraged diet lifestyle indications. 4. CAROLYN-untreated, not on Pap therapy. 5. Anxiety/depression-continue bupropion regimen. 6. Tobacco dependence-encourage cessation. 7. Ulcerative colitis-on balsalazide being disodium. DVT prophylaxis-Lovenox subcu This patient was seen by [address] under the supervision of Dr. Sena. <Amy Sena - Last Filed: 07/02/19 16:20> - Physical Exam Vitals/I&O's: Vital Signs Temp Pulse Resp BP Pulse Ox 98.6 F 89 16 146/74 H 93 07/02/19 15:25 07/02/19 15:25 07/02/19 15:25 07/02/19 15:25 07/02/19 15:25 Oxygen Delivery Method Room Air Weight: 123.2 kg Body Mass Index (BMI) 43.8 Intake and Output for Last 24 Hours 06/30/19 07/01/19 07/02/19 23:59 23:59 23:59 Intake Total 1585 / 1585 2817.5 / 2817.5 Balance 1585 / 1585 2817.5 / 2817.5 Microbiology Past 72 Hours 07/01/19 17:20 Mucosa - Nose Respiratory Panel (PCR) - Final Human [place]berry 07/01/19 22:05 Urine, Clean Catch Streptococcus pneumoniae Antigen (M - Final 07/01/19 22:05 Urine, Clean Catch Legionella Antigen - Final 07/01/19 17:20 Mucosa - Nose Influenza Types A,B Direct FA (ALBERTO) - Final Laboratory Results 07/01/19 15:30: Differential Comment SCANNED 07/01/19 15:30: Lactic Acid 2.3 H* 07/01/19 15:30: B-Natriuretic Peptide 78.1 07/01/19 19:19: Hemoglobin A1c 5.7 07/01/19 20:21: Lactic Acid 2.2 H* 07/02/19 06:30: WBC 6.8, RBC 3.92 L, Hgb 13.0, Hct 40.0, MCV 102.0 H, MCH 33.2 H, MCHC 32.5, RDW Std Deviation 47.9 H, RDW Coeff of Radha 12.7, Plt Count 232, MPV 10.2 07/02/19 06:30: Sodium 141, Potassium 4.0, Chloride 109 H, Carbon Dioxide 24.0, Anion Gap 8, BUN 17, Creatinine 0.88, Estim Creat Clear Calc 63.64, Est GFR (MDRD) Af Amer 85, Est GFR (MDRD) Non-Af 70, BUN/Creatinine Ratio 19.4, Glucose 117 H, Calcium 8.8, Magnesium 2.1, Total Bilirubin 0.20, AST 27, ALT 19, Alkaline Phosphatase 80, Total Protein 7.2, Albumin 3.2, Globulin 4.0, Albumin/Globulin Ratio 0.8 L 07/02/19 06:30: Hepatitis A IgM Ab Pending, Hepatitis A Ab Total Pending, Hep Bs Antigen Pending, Hep B Core Total Ab Pending, Hep B Core IgM Ab Pending 07/02/19 06:30: HIV 1&2 Antibody Non-Reactive Current Medications Acetaminophen (Tylenol) 650 mg PO Q6H PRN PRN PRN Reason: Pain Score 1-10/Temp > 100.7 F Last Admin: 07/02/19 14:28 Dose: 650 mg Documented by: Al Hydroxide/Mg Hydroxide (Mylanta Ii) 30 ml PO Q6H PRN PRN PRN Reason: Gastric Burning Albuterol Sulfate (Ventolin Aerosols) 2.5 mg INHALATION Q2H PRN PRN PRN Reason: Shortness of Breath/Wheezing Albuterol/Ipratropium (Duoneb) 3 ml INHALATION Q4H.RT [facility] Last Admin: 07/02/19 15:11 Dose: 3 ml Documented by: Balsalazide (Balsalazide Disodium) 750 mg PO TID [facility] Last Admin: 07/02/19 13:31 Dose: 750 mg Documented by: Bupropion HCl (Wellbutrin Xl) 150 mg PO QHS [facility] Last Admin: 07/01/19 22:14 Dose: 150 mg Documented by: Docusate Sodium (Colace) 100 mg PO BID [facility] Last Admin: 07/02/19 08:32 Dose: 100 mg Documented by: Emtricitabine/Tenofovir (Truvada 200 Mg-300 Mg Tablet) 1 tablet PO QHS [facility] Last Admin: 07/01/19 22:14 Dose: 1 tablet Documented by: Enoxaparin Sodium (Lovenox) 40 mg SC DAILY [facility] Last Admin: 07/02/19 08:32 Dose: 40 mg Documented by: Etodolac (Lodine) 200 mg PO DAILY [facility] Last Admin: 07/02/19 08:32 Dose: 200 mg Documented by: Famotidine (Pepcid) 20 mg PO BID [facility] Last Admin: 07/02/19 08:32 Dose: 20 mg Documented by: Guaifenesin (Mucinex) 1,200 mg PO BID [facility] Last Admin: 07/02/19 08:32 Dose: 1,200 mg Documented by: Azithromycin 500 mg/ Dextrose 255 mls @ 250 mls/hr IV Q24 [facility] Last Infusion: 07/02/19 09:42 Dose: Infused Documented by: Ceftriaxone Sodium (Rocephin) 1 gm in 50 mls @ 100 mls/hr IV Q24H [facility] Sodium Chloride () 250 mls @ 15 mls/hr IV .[id number] PRN PRN Reason: Saline Flush Sodium Chloride () 250 mls @ 15 mls/hr IV .[id number] PRN PRN Reason: Additional IVPB Infusion Magnesium Hydroxide (Milk Of Magnesia) 30 ml PO DAILY PRN PRN PRN Reason: Constipation Methylprednisolone (Solu-Medrol) 40 mg IV Q8 [facility] Last Admin: 07/02/19 13:31 Dose: 40 mg Documented by: Mirabegron (Myrbetriq) 50 mg PO DAILY [facility] Last Admin: 07/02/19 08:32 Dose: 50 mg Documented by: Nicotine (Nicoderm Cq (Pbkc)) 21 mg TRANSDERM. DAILY [facility] Last Admin: 07/02/19 08:32 Dose: 21 mg Documented by: Ondansetron HCl (Zofran) 4 mg IV Q8H PRN PRN PRN Reason: NAUSEA/VOMITING Prochlorperazine Edisylate (Compazine Iv) 5 mg IV Q4H PRN PRN PRN Reason: Breakthrough nausea/vomiting Sodium Chloride () 10 - 40 ml IV UD PRN PRN Reason: SALINE FLUSH Last Admin: 07/02/19 13:30 Dose: 10 ml Documented by: Throat Lozenges (Cepacol Sore Throat Lozenge) 1 lozenge MUCOUS MEM Q2H PRN PRN PRN Reason: SORE THROAT Assessment/Plan This patient was seen in conjunction with Erma Hernandez [employer]. I have independently interviewed and examined the patient and reviewed pertinent historical, laboratory, and other data. Please refer to her note for patient's presentation, findings, and recommendations. Patient was seen and examined. She feels wheezy. Denies chest pain or dizziness. Complains of generalized aches. No acute events overnight. Vitals were reviewed -stable Physical Exam: Gen: Looks in some discomfort, coughing, not pale, not jaundiced, alert oriented x3 CVS:HS I +II, regular, no murmurs RESP: Diminished at lung bases GI: BS present and normal, nontender, no palpable organs EXT:No edema Labs reviewed: Resp panel shows human metapneumo virus ASSESSMENT: 1. Acute COPD exacerbation 2. Chronic back pain 3. Anxiety/depression 4. Nicotine dependence 5. CAROLYN 6. Morbid Obesity 7. Ulcerative colitis Meds reviewed Plan: Continue on breathing treatments, on IV steroids Repeat CXR in am; if negative for infiltrates, will discontinue antibiotics Will add nicotine gum prn Inpatient E&M: [id number] Subs Hosp L2
[2019-07-02] MEDS: oxyCODONE 5 MG Tablet PO (16:38)
[2019-07-02] MEDS: buPROPion (XL) 150 MG TABLET.XL PO (21:30)
[2019-07-02] MEDS: EMTRICITABINE/TENOFOVIR 1 TABLET TABLET PO (21:30)
[2019-07-02] MEDS: Ceftriaxone 1 GM/50 ML BAG IV (21:30)
[2019-07-03] VITALS (14 sets, daily range): BP systolic 120–151; BP diastolic 76–88; PULSE 66–89; RESP 16–18; TEMP 35.9–36.8; O2SAT 92–98
[2019-07-03 04:06] LABS: HEPATITIS B SURFACE AG Negative (Negative); Hepatitis A AB, Total Negative (Negative); Hepatitis A IgM Antibody Negative (Negative); Hepatitis B Core AB IgM Negative (Negative); Hepatitis B Core Ab Total Negative (Negative); Hepatitis C Ab 0.4 s/co ratio (0.0-0.9)
--- NOTE | 2019-07-03 05:55 | RAD_ITS ---
STUDY: X-RAY CHEST REASON FOR EXAM: Female, 59 years old. Pneumonia. TECHNIQUE: AP portable chest. COMPARISON: July 01, 2019. June 29, 2019. November 27, 2014. FINDINGS: Patchy airspace opacity right lung base slightly worse since the prior study. No pleural effusions. No pneumothorax. Normal size heart. Normal mediastinum and damaris. Normal visualized pulmonary arteries. Normal visualized aortic arch and descending thoracic aorta. Normal visualized thoracic spine. Normal visualized ribs, clavicles, and shoulders. There is no demonstrated abnormality of the visualized soft tissue structures of the upper abdomen. RAD/Chest 1 View (Portable) IMPRESSION: Right basilar subsegmental atelectasis versus pneumonia. Electronically Signed: Prince Agosto MD at 7:39 EDT , Service support ,
[2019-07-03] MEDS: 0.9% Saline Lock 10 ML Syringe IV ×4 (07:02→13:14)
[2019-07-03] MEDS: BALSALAZIDE DISODIUM 750 MG CAPSULE PO ×3 (07:02→21:23)
[2019-07-03] MEDS: Ipratropium/Albuterol Sulfate 3 ML AMPUL.NEB INHALATION ×5 (07:22→23:14)
[2019-07-03] MEDS: BENZOCAINE/MENTHOL 1 LOZENGE MUCOUS MEM (08:53)
[2019-07-03] MEDS: Acetaminophen 325 MG Tablet 650 MG PO ×2 (08:53→21:24)
[2019-07-03] MEDS: Etodolac 200 MG Capsule PO (09:41)
[2019-07-03] MEDS: Famotidine 20 MG Tablet PO ×2 (09:41→21:23)
[2019-07-03] MEDS: Mirabegron 50 MG TAB.ER.24H PO (09:42)
[2019-07-03] MEDS: Docusate Sodium 100 MG Capsule PO ×2 (09:42→21:23)
--- NOTE | 2019-07-03 09:42 | CASEMGMT ---
SW gave patient a copy of Healthcare Living Will and Healthcare Power of [employer] per her request. She said she would read through them. Lorrie KUO MSW
[2019-07-03] MEDS: Enoxaparin 40 MG/0.4 ML Syringe SC (09:43)
[2019-07-03 12:07] LABS: Hep B Surface Antibodies Non Reactive (.)
--- NOTE | 2019-07-03 14:15 | PN_ITS ---
<Erma Hernandez - Last Filed: 07/03/19 14:18> Patient Problems: Active and Suspected Problems (Last Reviewed 07/01/19 @ 17:[address] Jaz Sharif DO) COPD exacerbation (Acute) suspected COPD....has never had PFT's Lactic acidosis (Acute) Hyperglycemia (Acute) Subjective: Patient seen and examined. Continues to have shortness of breath and wheezing. Oxygen stable on room air. - Physical Exam Vitals/I&O's: Vital Signs Temp Pulse Resp BP Pulse Ox 97.5 F L 69 18 120/80 92 07/03/19 09:40 07/03/19 09:40 07/03/19 09:40 07/03/19 09:40 07/03/19 09:40 Oxygen Delivery Method Room Air Weight: 271 lb 9.752 oz Body Mass Index (BMI) 43.8 Intake and Output for Last 24 Hours 07/01/19 07/02/19 07/03/19 23:59 23:59 23:59 Intake Total 1585 / 1585 3997.5 / 3997.5 615 / 615 Balance 1585 / 1585 3997.5 / 3997.5 615 / 615 General: Alert, Oriented x3, Cooperative HEENT: Atraumatic, PERRLA, EOMI, Normocephalic Neck: Supple, No JVD, Negative Carotid Bruits Lungs: Diminished, Wheezes Cardiovascular: Regular rate, Regular Rhythm, Normal S1, Normal S2, No murmurs Abdomen: Bowel Sounds Present, Soft, Non Tender, Non-Distended, Obese Extremities: No clubbing, No cyanosis, No edema, Capillary Refill Less than 3 Seconds Skin: No rashes, No breakdown Musculoskeletal: No Tenderness to Palpation of Joints or Extremities Neurological: Cranial nerves II-XII grossly intact, Neuro grossly intact Psych/Mental Status: Normal Affect, Appropriate Microbiology Past 72 Hours 07/01/19 15:48 Blood Culture (Wb) - Left Hand Blood Culture - Preliminary No growth in 48 hours. 07/01/19 15:30 Blood Culture (Wb) - Anticubital Right Blood Culture - Preliminary No growth in 48 hours. 07/01/19 17:20 Mucosa - Nose Respiratory Panel (PCR) - Final Human Daisy 07/01/19 22:05 Urine, Clean Catch Streptococcus pneumoniae Antigen (M - Final 07/01/19 22:05 Urine, Clean Catch Legionella Antigen - Final 07/01/19 17:20 Mucosa - Nose Influenza Types A,B Direct FA (ALBERTO) - Final Laboratory Results 07/02/19 06:30: Hepatitis A IgM Ab Negative, Hepatitis A Ab Total Negative, Hep Bs Antigen Negative, Hep B Core Total Ab Negative, Hep B Core IgM Ab Negative, Hepatitis C Ab Confirm 0.4, Hep C Confirm Com 1 Comment Current Medications Acetaminophen (Tylenol) 650 mg PO Q6H PRN PRN PRN Reason: Pain Score 1-10/Temp > 100.7 F Last Admin: 07/03/19 08:53 Dose: 650 mg Documented by: Al Hydroxide/Mg Hydroxide (Mylanta Ii) 30 ml PO Q6H PRN PRN PRN Reason: Gastric Burning Albuterol Sulfate (Ventolin Aerosols) 2.5 mg INHALATION Q2H PRN PRN PRN Reason: Shortness of Breath/Wheezing Albuterol/Ipratropium (Duoneb) 3 ml INHALATION Q4H.RT [facility] Last Admin: 07/03/19 11:41 Dose: 3 ml Documented by: Balsalazide (Balsalazide Disodium) 750 mg PO TID [facility] Last Admin: 07/03/19 13:15 Dose: 750 mg Documented by: Bupropion HCl (Wellbutrin Xl) 150 mg PO QHS [facility] Last Admin: 07/02/19 21:30 Dose: 150 mg Documented by: Docusate Sodium (Colace) 100 mg PO BID [facility] Last Admin: 07/03/19 09:42 Dose: 100 mg Documented by: Emtricitabine/Tenofovir (Truvada 200 Mg-300 Mg Tablet) 1 tablet PO QHS [facility] Last Admin: 07/02/19 21:30 Dose: 1 tablet Documented by: Enoxaparin Sodium (Lovenox) 40 mg SC DAILY [facility] Last Admin: 07/03/19 09:43 Dose: 40 mg Documented by: Etodolac (Lodine) 200 mg PO DAILY [facility] Last Admin: 07/03/19 09:41 Dose: 200 mg Documented by: Famotidine (Pepcid) 20 mg PO BID [facility] Last Admin: 07/03/19 09:41 Dose: 20 mg Documented by: Guaifenesin (Mucinex) 1,200 mg PO BID [facility] Last Admin: 07/03/19 09:42 Dose: Not Given Documented by: Azithromycin 500 mg/ Dextrose 255 mls @ 250 mls/hr IV Q24 [facility] Last Infusion: 07/03/19 13:11 Dose: Infused Documented by: Ceftriaxone Sodium (Rocephin) 1 gm in 50 mls @ 100 mls/hr IV Q24H [facility] Last Infusion: 07/02/19 22:00 Dose: Infused Documented by: Sodium Chloride () 250 mls @ 15 mls/hr IV .[id number] PRN PRN Reason: Saline Flush Sodium Chloride () 250 mls @ 15 mls/hr IV .[id number] PRN PRN Reason: Additional IVPB Infusion Magnesium Hydroxide (Milk Of Magnesia) 30 ml PO DAILY PRN PRN PRN Reason: Constipation Methylprednisolone (Solu-Medrol) 40 mg IV Q8 [facility] Last Admin: 07/03/19 13:15 Dose: 40 mg Documented by: Mirabegron (Myrbetriq) 50 mg PO DAILY [facility] Last Admin: 07/03/19 09:42 Dose: 50 mg Documented by: Nicotine (Nicoderm Cq ([facility])) 21 mg TRANSDERM. DAILY [facility] Last Admin: 07/03/19 09:42 Dose: 21 mg Documented by: Nicotine Polacrilex (Rugby Nicotine (kc)) 4 mg PO Q2H PRN PRN PRN Reason: Nicotine Craving Ondansetron HCl (Zofran) 4 mg IV Q8H PRN PRN PRN Reason: NAUSEA/VOMITING Prochlorperazine Edisylate (Compazine Iv) 5 mg IV Q4H PRN PRN PRN Reason: Breakthrough nausea/vomiting Sodium Chloride () 10 - 40 ml IV UD PRN PRN Reason: SALINE FLUSH Last Admin: 07/03/19 13:14 Dose: 20 ml Documented by: Throat Lozenges (Cepacol Sore Throat Lozenge) 1 lozenge MUCOUS MEM Q2H PRN PRN PRN Reason: SORE THROAT Last Admin: 07/03/19 08:53 Dose: 1 lozenge Documented by: Medical Necessity - Tobacco Use Smoking Status: Current every day smoker Tobacco Use: Cigarettes Assessment/Plan All Active Problems (Last Reviewed 07/01/19 @ 17:[address] Enriqueta Sementi, DO) COPD exacerbation (Acute) Lactic acidosis (Acute) Hyperglycemia (Acute) Left shoulder strain (Acute) Sprain of medial collateral ligament of left knee, initial encounter (Acute) Contusion of left knee, initial encounter (Acute) Strain of unspecified muscle, fascia and tendon at shoulder and upper arm level, right arm, initial encounter (Acute) Contusion of left hand, initial encounter (Acute) Contusion of right knee, initial encounter (Acute) Contusion of right wrist, initial encounter (Acute) 1. Acute exacerbation of COPD secondary to human metapneumovirus with possible bibasilar pneumonia versus scarring and/or atelectasis-chest x-ray admission with possible infiltrates. IV azithromycin and IV Rocephin empirically. IV Solu-Medrol. Albuterol and DuoNeb aerosols. Patient will need outpatient follow-up with pulmonary medicine for PFTs. Blood cultures show no growth. Oxygen stable on room air. Repeat chest x-ray this a.m. shows right basilar subsegmental atelectasis versus pneumonia. 2. Chronic back pain-as needed pain regimen. 3. Morbid obesity-encouraged diet lifestyle indications. 4. CAROLYN-untreated, not on Pap therapy. 5. Anxiety/depression-continue bupropion regimen. 6. Tobacco dependence-encourage cessation. 7. Ulcerative colitis-on balsalazide being disodium. DVT prophylaxis-Lovenox subcu This patient was seen by [facility] under the supervision of Dr. Sena. <Amy Sena - Last Filed: 07/03/19 16:44> - Physical Exam Vitals/I&O's: Vital Signs Temp Pulse Resp BP Pulse Ox 96.7 F L 72 18 137/79 H 94 07/03/19 15:47 07/03/19 15:47 07/03/19 15:47 07/03/19 15:47 07/03/19 15:47 Oxygen Delivery Method Room Air Weight: 123.2 kg Body Mass Index (BMI) 43.8 Intake and Output for Last 24 Hours 07/01/19 07/02/19 07/03/19 23:59 23:59 23:59 Intake Total 1585 / 1585 3997.5 / 3997.5 615 / 615 Balance 1585 / 1585 3997.5 / 3997.5 615 / 615 Microbiology Past 72 Hours 03/15/20 15:48 Blood Culture (Wb) - Left Hand Blood Culture - Preliminary No growth in 48 hours. 07/01/19 15:30 Blood Culture (Wb) - Anticubital Right Blood Culture - Preliminary No growth in 48 hours. 07/01/19 17:20 Mucosa - Nose Respiratory Panel (PCR) - Final Human Daisy 07/01/19 22:05 Urine, Clean Catch Streptococcus pneumoniae Antigen (M - Final 07/01/19 22:05 Urine, Clean Catch Legionella Antigen - Final 07/01/19 17:20 Mucosa - Nose Influenza Types A,B Direct FA (ALBERTO) - Final Laboratory Results 07/02/19 06:30: Hepatitis A IgM Ab Negative, Hepatitis A Ab Total Negative, Hep Bs Antigen Negative, Hep B Core Total Ab Negative, Hep B Core IgM Ab Negative, Hepatitis C Ab Confirm 0.4, Hep C Confirm Com 1 Comment Current Medications Acetaminophen (Tylenol) 650 mg PO Q6H PRN PRN PRN Reason: Pain Score 1-10/Temp > 100.7 F Last Admin: 07/03/19 08:53 Dose: 650 mg Documented by: Al Hydroxide/Mg Hydroxide (Mylanta Ii) 30 ml PO Q6H PRN PRN PRN Reason: Gastric Burning Albuterol Sulfate (Ventolin Aerosols) 2.5 mg INHALATION Q2H PRN PRN PRN Reason: Shortness of Breath/Wheezing Albuterol/Ipratropium (Duoneb) 3 ml INHALATION Q4H.RT [facility] Last Admin: 07/03/19 14:50 Dose: 3 ml Documented by: Balsalazide (Balsalazide Disodium) 750 mg PO TID [facility] Last Admin: 07/03/19 13:15 Dose: 750 mg Documented by: Bupropion HCl (Wellbutrin Xl) 150 mg PO QHS [facility] Last Admin: 07/02/19 21:30 Dose: 150 mg Documented by: Docusate Sodium (Colace) 100 mg PO BID [facility] Last Admin: 07/03/19 09:42 Dose: 100 mg Documented by: Emtricitabine/Tenofovir (Truvada 200 Mg-300 Mg Tablet) 1 tablet PO QHS [facility] Last Admin: 07/02/19 21:30 Dose: 1 tablet Documented by: Enoxaparin Sodium (Lovenox) 40 mg SC DAILY [facility] Last Admin: 07/03/19 09:43 Dose: 40 mg Documented by: Etodolac (Lodine) 200 mg PO DAILY [facility] Last Admin: 07/03/19 09:41 Dose: 200 mg Documented by: Famotidine (Pepcid) 20 mg PO BID [facility] Last Admin: 07/03/19 09:41 Dose: 20 mg Documented by: Guaifenesin (Mucinex) 1,200 mg PO BID [facility] Last Admin: 07/03/19 09:42 Dose: Not Given Documented by: Azithromycin 500 mg/ Dextrose 255 mls @ 250 mls/hr IV Q24 [facility] Last Infusion: 07/03/19 13:11 Dose: Infused Documented by: Ceftriaxone Sodium (Rocephin) 1 gm in 50 mls @ 100 mls/hr IV Q24H [facility] Last Infusion: 07/02/19 22:00 Dose: Infused Documented by: Sodium Chloride () 250 mls @ 15 mls/hr IV .[id number] PRN PRN Reason: Saline Flush Sodium Chloride () 250 mls @ 15 mls/hr IV .[id number] PRN PRN Reason: Additional IVPB Infusion Magnesium Hydroxide (Milk Of Magnesia) 30 ml PO DAILY PRN PRN PRN Reason: Constipation Methylprednisolone (Solu-Medrol) 40 mg IV Q8 [facility] Last Admin: 07/03/19 13:15 Dose: 40 mg Documented by: Mirabegron (Myrbetriq) 50 mg PO DAILY [facility] Last Admin: 07/03/19 09:42 Dose: 50 mg Documented by: Nicotine (Nicoderm Cq ([facility])) 21 mg TRANSDERM. DAILY [facility] Last Admin: 07/03/19 09:42 Dose: 21 mg Documented by: Nicotine Polacrilex (Rugby Nicotine ([facility])) 4 mg PO Q2H PRN PRN PRN Reason: Nicotine Craving Ondansetron HCl (Zofran) 4 mg IV Q8H PRN PRN PRN Reason: NAUSEA/VOMITING Prochlorperazine Edisylate (Compazine Iv) 5 mg IV Q4H PRN PRN PRN Reason: Breakthrough nausea/vomiting Sodium Chloride () 10 - 40 ml IV UD PRN PRN Reason: SALINE FLUSH Last Admin: 07/03/19 13:14 Dose: 20 ml Documented by: Throat Lozenges (Cepacol Sore Throat Lozenge) 1 lozenge MUCOUS MEM Q2H PRN PRN PRN Reason: SORE THROAT Last Admin: 07/03/19 08:53 Dose: 1 lozenge Documented by: Assessment/Plan This patient was seen in conjunction with Erma Hernandez [employer]. I have independently interviewed and examined the patient and reviewed pertinent historical, laboratory, and other data. Please refer to her note for patient's presentation, findings, and recommendations. Patient was seen and examined. She feels wheezy. Denies chest pain or dizziness. Complains of generalized aches. No acute events overnight. Vitals were reviewed -stable Physical Exam: Gen: Looks in some discomfort, coughing, not pale, not jaundiced, alert oriented x3 CVS:HS I +II, regular, no murmurs RESP: Diminished at lung bases GI: BS present and normal, nontender, no palpable organs EXT:No edema Labs reviewed: Resp panel shows human metapneumo virus ASSESSMENT: 1. Acute COPD exacerbation 2. Chronic back pain 3. Anxiety/depression 4. Nicotine dependence 5. CAROLYN 6. Morbid Obesity 7. Ulcerative colitis Meds reviewed Plan: Continue on breathing treatments, on IV steroids Will treat with antibiotics for a total of 1 week. Inpatient E&M: [id number] Subs Hosp L2
[2019-07-03] MEDS: EMTRICITABINE/TENOFOVIR 1 TABLET TABLET PO (21:23)
[2019-07-03] MEDS: buPROPion (XL) 150 MG TABLET.XL PO (21:23)
[2019-07-03] MEDS: Ceftriaxone 1 GM/50 ML BAG IV (21:24)
[2019-07-04] VITALS (7 sets, daily range): BP systolic 154–159; BP diastolic 76–102; PULSE 64–85; RESP 16–20; TEMP 36.3–36.6; O2SAT 90–94
[2019-07-04] MEDS: Ipratropium/Albuterol Sulfate 3 ML AMPUL.NEB INHALATION ×3 (02:42→11:05)
[2019-07-04] MEDS: Acetaminophen 325 MG Tablet 650 MG PO (03:24)
[2019-07-04] MEDS: BENZOCAINE/MENTHOL 1 LOZENGE MUCOUS MEM (03:24)
[2019-07-04] MEDS: BALSALAZIDE DISODIUM 750 MG CAPSULE PO (06:20)
[2019-07-04] MEDS: Enoxaparin 40 MG/0.4 ML Syringe SC (10:13)
[2019-07-04] MEDS: Docusate Sodium 100 MG Capsule PO (10:13)
[2019-07-04] MEDS: Famotidine 20 MG Tablet PO (10:13)
[2019-07-04] MEDS: Mirabegron 50 MG TAB.ER.24H PO (10:13)
[2019-07-04] MEDS: guaiFENesin 1,200 MG Tablet 1200 MG PO (10:13)
[2019-07-04] MEDS: Etodolac 200 MG Capsule PO (10:13)
[2019-07-04 10:23] LABS: Absolute Lymphocyte Count 1.12 X10^3/uL (0.83-4.51); Basophil# 0.01 X10^3/uL; Basophil% 0.1 % (0-1); Hematocrit 44.3 % (37-47); Hemoglobin 14.5 g/dL (12.0-15.0); Lymphocyte # 1.12 X10^3/ul (4.0); Lymphocyte % 15.2 % (19-41); Mean Corp Hgb Conc 32.7 g/dL (32-36); Mean Corpuscular Hgb 33.3 pg (27.0-32.0); Mean Corpuscular Volume 101.8 fL (81-99); Mean Platelet Vol. 10.1 fl (6.2-12.0); Monocyte# 0.18 X10^3/uL; Monocyte% 2.4 % (0-10); NRBC Flagged by Analyzer 0 % (0-5); Neutrophil # 5.98 X10^3/uL (2.7-7.7); Neutrophil % 81.2 % (47-70); POSITIVE MORPHOLOGY YES; Platelet Count 258 K/mm3 (150-450); RBC Distribution Width CV 12.4 % (11.6-14.6); RBC Distribution Width SD 47.2 fl (35.1-43.9); Red Blood Count 4.35 M/mm3 (4.2-5.4); White Blood Count 7.4 K/mm3 (4.4-11.0)
[2019-07-04 10:31] LABS: Differential Indicated SCAN CRITERIA MET
--- NOTE | 2019-07-04 10:36 | PCM.DC ---
- Discharge Diagnoses Current Active Problems: Current Active and Chronic Problems (Last Reviewed 07/01/19 @ 17:[address] Jaz Sharif, DO) COPD exacerbation (Acute) suspected COPD....has never had PFT's Lactic acidosis (Acute) Obstructive sleep apnea (Chronic) not treated Morbid obesity with BMI of 40.0-44.9, adult (Chronic) Hyperglycemia (Acute) Ulcerative colitis (Chronic) Reason(s) for Visit for Discharge Instructions: Shortness of breath You will use the following diet at home:: Cardiac Your food should be the consistency of: Regular Your liquids should be the consistency of: Regular/Thin Discharge Activity: Return to Normal Activity Instructions: Losartan Potassium Oral tablet, Tips for Quitting Smoking (Cardiovascular), Chronic Lung Disease: Tips for Quitting Smoking, Staying Smoke-Free, Health Effects of Smoking Additional Instructions: Complete antibiotics and prednisone taper. You are strongly encouraged to stop smoking. Follow-up with your primary care doctor within 1 to 2 weeks. You have been started on a new blood pressure medication. You will need repeat blood work within a week to check on your kidney function. Allergies/Adverse Reactions: Allergies venom-honey bee [bee venom (honey bee)] Allergy (Verified 07/01/19 14:54) Anaphylaxis morphine Adverse Reaction (Verified 07/01/19 14:54) Vomiting Medications to take at Discharge Balsalazide Disodium 750 mg PO TID 11/27/15 Epi Pen (for allergic rxn) 0.3 mg IM X1 PRN 11/27/15 Bupropion HCl [Wellbutrin Xl] 150 mg PO QHS 07/27/17 Nabumetone [Relafen] 500 mg PO DAILY 07/27/17 Albuterol Inhaler [Ventolin Hfa] 2 puff INHALATION Q4H PRN PRN #1 inhaler 06/29/19 Emtricitabine/Tenofovir (Tdf) [Truvada 200 mg-300 mg Tablet] 1 tab PO DAILY 06/29/19 Mirabegron [Myrbetriq] 50 mg PO DAILY 06/29/19 Acetaminophen [Tylenol Tablet] 650 mg PO Q6H PRN PRN tablet 07/04/19 Amox/Clavulanate Tablet [Augmentin Tablet] 875 mg PO Q12H 3 Days #6 tab 07/04/19 Guaifenesin [Mucinex] 1,200 mg PO BID 10 Days #20 tab 07/04/19 Nicotine Polacrilex [Nicotine Gum] 4 mg PO Q2H PRN PRN #60 gum 07/04/19 Nicotine [Nicoderm Cq] 21 mg TRANSDERM. DAILY 30 Days #30 patch 07/04/19 Prednisone 10 mg PO DAILY 30 Days #30 tab 07/04/19 The following prescriptions were given: Amox/Clavulanate Tablet [Augmentin Tablet] 875 mg PO Q12H 3 Days #6 tab Transmission Status: Pending to [facility] Guaifenesin [Mucinex] 1,200 mg PO BID 10 Days #20 tab Transmission Status: Pending to [facility] Nicotine [Nicoderm Cq] 21 mg TRANSDERM. DAILY 30 Days #30 patch Transmission Status: Pending to [facility] Nicotine Polacrilex [Nicotine Gum] 4 mg PO Q2H PRN PRN #60 gum PRN Reason: Nicotine Craving Transmission Status: Pending to [facility] Prednisone 10 mg PO DAILY 30 Days #30 tab Transmission Status: Pending to [facility] Primary Care Physician: Luke Hutson MD [Primary Care Provider] - Please follow up with your Primary Care Physician in: within 1-2 weeks Test Results: Test results from this visit will be discussed in further detail at your follow-up appointment, if applicable. Please Follow Up With: Percy Villatoro MD When: in 2-4 weeks Proposed Discharge Date: 07/04/19
--- NOTE | 2019-07-04 10:43 | PCM.DC.SUM ---
Discharge Date and Diagnosis Date of Admission: 07/01/19 Date of Discharge: 07/04/19 - Primary Discharge Diagnosis Active and Suspected Problems (Last Reviewed 07/01/19 @ 17:[address] Jaz Sharif DO) Acute COPD exacerbation Lactic acidosis secondary to hypoxia Nicotine dependence Uncontrolled hypertension, newly diagnosed - Secondary Discharge Diagnosis Chronic Problems (Last Reviewed 07/01/19 @ 17:[address] Jaz Sharif DO) Fibromyalgia (Chronic) Anxiety and depression (Chronic) Hx of cholecystectomy (Chronic) Obstructive sleep apnea (Chronic) not treated Morbid obesity with BMI of 40.0-44.9, adult (Chronic) Ulcerative colitis (Chronic) Contusion of right shoulder, initial encounter (Chronic) Tobacco abuse (Chronic) Chronic musculoskeletal pain (Chronic) Hospital Course and Treatment Imaging Results: Clinical Impression(s) from Imaging Studies Chest X-Ray 07/01/19 15:46 IMPRESSION: Findings suspicious for pulmonary venous congestion, infectious inflammatory infiltrates cannot be excluded Electronically Signed: Tr Nick at 16:04 EDT Tel , Service support , Chest X-Ray 07/03/19 05:55 IMPRESSION: Right basilar subsegmental atelectasis versus pneumonia. Electronically Signed: Prince Agosto MD at 7:39 EDT , Service support , None Operations: None Procedures: None Summary of Care Provided: The patient is a 59 year old F with past medical history of COPD, nicotine dependence who presented with shortness of breath and was managed as acute COPD exacerbation. Respiratory panel was negative for influenza by positive for human metapneumovirus. Patient was managed on IV steroids, breathing treatments with improvement. Her blood pressures were found to be elevated and started on blood pressure medication. Patient initially was on oxygen but was weaned off oxygen with use of incentive spirometer. She was evaluated for home oxygen at discharge and did not qualify. Was counseled strongly on strict smoking cessation. She was discharged on a prednisone taper, antibiotics and inhaler. She will follow-up with judicial law clerk in clinic. Subjective: On the day of discharge, patient was seen and examined. She feels much better. Denies any fever or chills or chest pain. Objective: Physical exam: General: Alert, Oriented x3, Cooperative HEENT: Atraumatic, PERRLA, EOMI, Normocephalic Neck: Supple, No JVD, Negative Carotid Bruits Lungs: Diminished, Wheezes Cardiovascular: Regular rate, Regular Rhythm, Normal S1, Normal S2, No murmurs Abdomen: Bowel Sounds Present, Soft, Non Tender, Non-Distended, Obese Extremities: No clubbing, No cyanosis, No edema, Capillary Refill Less than 3 Seconds Skin: No rashes, No breakdown Musculoskeletal: No Tenderness to Palpation of Joints or Extremities Neurological: Cranial nerves II-XII grossly intact, Neuro grossly intact Psych/Mental Status: Normal Affect, Appropriate - Physical Exam Vitals/I&O's: Vital Signs Temp Pulse Resp BP Pulse Ox 97.4 F L 77 18 154/102 H 93 07/04/19 10:02 07/04/19 10:02 07/04/19 10:02 07/04/19 10:02 07/04/19 10:02 Oxygen Flow Rate (L/min) 2 Oxygen Delivery Method Room Air Weight: 123.2 kg Body Mass Index (BMI) 43.8 Intake and Output for Last 24 Hours 07/02/19 07/03/19 07/04/19 23:59 23:59 23:59 Intake Total 3997.5 / 3997.5 975 / 1455 1010 / 1010 Balance 3997.5 / 3997.5 975 / 1455 1010 / 1010 Microbiology Past 72 Hours 07/01/19 15:48 Blood Culture (Wb) - Left Hand Blood Culture - Preliminary No growth in 48 hours. 07/01/19 15:30 Blood Culture (Wb) - Anticubital Right Blood Culture - Preliminary No growth in 48 hours. 07/01/19 17:20 Mucosa - Nose Respiratory Panel (PCR) - Final Human [place] 07/01/19 22:05 Urine, Clean Catch Streptococcus pneumoniae Antigen (M - Final 07/01/19 22:05 Urine, Clean Catch Legionella Antigen - Final 07/01/19 17:20 Mucosa - Nose Influenza Types A,B Direct FA (ALBERTO) - Final Laboratory Results 07/02/19 06:30: Hepatitis A IgM Ab Negative, Hepatitis A Ab Total Negative, Hep Bs Antigen Negative, Hep B Core Total Ab Negative, Hep B Core IgM Ab Negative, Hepatitis C Ab Confirm 0.4, Hep C Confirm Com 1 Comment 07/04/19 10:16: WBC 7.4, RBC 4.35, Hgb 14.5, Hct 44.3, MCV 101.8 H, MCH 33.3 H, MCHC 32.7, RDW Std Deviation 47.2 H, RDW Coeff of Radha 12.4, Plt Count 258, MPV 10.1, Immature Gran % (Auto) 1.100 H, Neut % (Auto) 81.2 H, Lymph % (Auto) 15.2 L, [place] % (Auto) 2.4, Eos % (Auto) 0.0, Baso % (Auto) 0.1, Absolute Neuts (auto) 6.0, Absolute Lymphs (auto) 1.12, Nucleated RBC % 0 07/04/19 10:16: Sodium Pending, Potassium Pending, Chloride Pending, Carbon Dioxide Pending, Anion Gap Pending, BUN Pending, Creatinine Pending, Est GFR (MDRD) Af Amer Pending, Est GFR (MDRD) Non-Af Pending, BUN/Creatinine Ratio Pending, Glucose Pending, Calcium Pending Current Medications Acetaminophen (Tylenol) 650 mg PO Q6H PRN PRN PRN Reason: Pain Score 1-10/Temp > 100.7 F Last Admin: 07/04/19 03:24 Dose: 650 mg Documented by: Al Hydroxide/Mg Hydroxide (Mylanta Ii) 30 ml PO Q6H PRN PRN PRN Reason: Gastric Burning Albuterol Sulfate (Ventolin Aerosols) 2.5 mg INHALATION Q2H PRN PRN PRN Reason: Shortness of Breath/Wheezing Albuterol/Ipratropium (Duoneb) 3 ml INHALATION Q4H.RT [facility] Last Admin: 07/04/19 07:04 Dose: 3 ml Documented by: Balsalazide (Balsalazide Disodium) 750 mg PO TID [facility] Last Admin: 07/04/19 06:20 Dose: 750 mg Documented by: Bupropion HCl (Wellbutrin Xl) 150 mg PO QHS [facility] Last Admin: 07/03/19 21:23 Dose: 150 mg Documented by: Docusate Sodium (Colace) 100 mg PO BID [facility] Last Admin: 07/04/19 10:13 Dose: 100 mg Documented by: Emtricitabine/Tenofovir (Truvada 200 Mg-300 Mg Tablet) 1 tablet PO QHS [facility] Last Admin: 07/03/19 21:23 Dose: 1 tablet Documented by: Enoxaparin Sodium (Lovenox) 40 mg SC DAILY [facility] Last Admin: 07/04/19 10:13 Dose: 40 mg Documented by: Etodolac (Lodine) 200 mg PO DAILY [facility] Last Admin: 07/04/19 10:13 Dose: 200 mg Documented by: Famotidine (Pepcid) 20 mg PO BID [facility] Last Admin: 07/04/19 10:13 Dose: 20 mg Documented by: Guaifenesin (Mucinex) 1,200 mg PO BID [facility] Last Admin: 07/04/19 10:13 Dose: 1,200 mg Documented by: Azithromycin 500 mg/ Dextrose 255 mls @ 250 mls/hr IV Q24 [facility] Last Admin: 07/04/19 10:14 Dose: 250 mls/hr Documented by: Ceftriaxone Sodium (Rocephin) 1 gm in 50 mls @ 100 mls/hr IV Q24H [facility] Last Infusion: 07/04/19 02:24 Dose: Infused Documented by: Sodium Chloride () 250 mls @ 15 mls/hr IV .[id number] PRN PRN Reason: Saline Flush Sodium Chloride () 250 mls @ 15 mls/hr IV .[id number] PRN PRN Reason: Additional IVPB Infusion Losartan Potassium (Cozaar) 25 mg PO DAILY [facility] Magnesium Hydroxide (Milk Of Magnesia) 30 ml PO DAILY PRN PRN PRN Reason: Constipation Methylprednisolone (Solu-Medrol) 40 mg IV Q8 [facility] Last Admin: 07/04/19 06:20 Dose: 40 mg Documented by: Mirabegron (Myrbetriq) 50 mg PO DAILY [facility] Last Admin: 07/04/19 10:13 Dose: 50 mg Documented by: Nicotine (Nicoderm Cq ([facility])) 21 mg TRANSDERM. DAILY [facility] Last Admin: 07/04/19 10:13 Dose: 21 mg Documented by: Nicotine Polacrilex ([place] Nicotine (kc)) 4 mg PO Q2H PRN PRN PRN Reason: Nicotine Craving Ondansetron HCl (Zofran) 4 mg IV Q8H PRN PRN PRN Reason: NAUSEA/VOMITING Prochlorperazine Edisylate (Compazine Iv) 5 mg IV Q4H PRN PRN PRN Reason: Breakthrough nausea/vomiting Sodium Chloride () 10 - 40 ml IV UD PRN PRN Reason: SALINE FLUSH Last Admin: 07/03/19 13:14 Dose: 20 ml Documented by: Throat Lozenges (Cepacol Sore Throat Lozenge) 1 lozenge MUCOUS MEM Q2H PRN PRN PRN Reason: SORE THROAT Last Admin: 07/04/19 03:24 Dose: 1 lozenge Documented by: Discharge Diet: Low fat/ Low Cholesterol, 2000 mg Sodium Diet Discharge Activity: Return to Normal Activity Home Medications: Medications to take at Discharge Balsalazide Disodium 750 mg PO TID 11/27/15 Epi Pen (for allergic rxn) 0.3 mg IM X1 PRN 11/27/15 Bupropion HCl [Wellbutrin Xl] 150 mg PO QHS 07/27/17 Nabumetone [Relafen] 500 mg PO DAILY 07/27/17 Albuterol Inhaler [Ventolin Hfa] 2 puff INHALATION Q4H PRN PRN #1 inhaler 06/29/19 Emtricitabine/Tenofovir (Tdf) [Truvada 200 mg-300 mg Tablet] 1 tab PO DAILY 06/29/19 Mirabegron [Myrbetriq] 50 mg PO DAILY 06/29/19 Acetaminophen [Tylenol Tablet] 650 mg PO Q6H PRN PRN tab 07/04/19 Amox/Clavulanate Tablet [Augmentin Tablet] 875 mg PO Q12H 3 Days #6 tab 07/04/19 Guaifenesin [Mucinex] 1,200 mg PO BID 10 Days #20 tab 07/04/19 Losartan Potassium 25 mg PO DAILY 30 Days #30 tab 07/04/19 Nicotine Polacrilex [Nicotine Gum] 4 mg PO Q2H PRN PRN #60 gum 07/04/19 Nicotine [Nicoderm Cq] 21 mg TRANSDERM. DAILY 30 Days #30 patch 07/04/19 Prednisone 10 mg PO DAILY 30 Days #30 tab 07/04/19 Following Prescrptions Were Given to Patient: Amox/Clavulanate Tablet [Augmentin Tablet] 875 mg PO Q12H 3 Days #6 tab Transmission Status: Received by [facility] Losartan Potassium 25 mg PO DAILY 30 Days #30 tab Transmission Status: Received by [facility] Guaifenesin [Mucinex] 1,200 mg PO BID 10 Days #20 tab Transmission Status: Received by [facility] Nicotine [Nicoderm Cq] 21 mg TRANSDERM. DAILY 30 Days #30 patch Transmission Status: Received by [facility] Nicotine Polacrilex [Nicotine Gum] 4 mg PO Q2H PRN PRN #60 gum PRN Reason: Nicotine Craving Transmission Status: Received by [facility] Prednisone 10 mg PO DAILY 30 Days #30 tab Transmission Status: Received by [facility] Primary Care Physician: Luke Hutson MD [Primary Care Provider] - Please follow up with your Primary Care Physician in: within 1-2 weeks Please Follow Up With: Percy Villatoro MD When: in 2-4 weeks Patient Instructions: Losartan Potassium Oral tablet, Tips for Quitting Smoking (Cardiovascular), Chronic Lung Disease: Tips for Quitting Smoking, Staying Smoke-Free, Health Effects of Smoking Disposition: Home Minutes spent on discharge:: 40 Patient Condition:: Stable Medical Necessity - Tobacco Use Smoking Status: Current every day smoker Tobacco Use: Cigarettes Meaningful Use Info Meaningful Use Diagnoses (Choose all that apply): None applicable Inpatient E&M: 10100 Disch Hosp
--- NOTE | 2019-07-04 11:02 | PHA.DC.MR ---
Pharmacy Service has performed discharge medication reconciliation for this patient. The patient's discharge medication list was reviewed for discrepancies and discrepancies were resolved. Home Medications Balsalazide Disodium 750 mg PO TID 11/27/15 Epi Pen (for allergic rxn) 0.3 mg IM X1 PRN 11/27/15 Bupropion HCl [Wellbutrin Xl] 150 mg PO QHS 07/27/17 Nabumetone [Relafen] 500 mg PO DAILY 07/27/17 Albuterol Inhaler [Ventolin Hfa] 2 puff INHALATION Q4H PRN PRN #1 inhaler 06/29/19 Emtricitabine/Tenofovir (Tdf) [Truvada 200 mg-300 mg Tablet] 1 tab PO DAILY 06/29/19 Mirabegron [Myrbetriq] 50 mg PO DAILY 06/29/19 Acetaminophen [Tylenol Tablet] 650 mg PO Q6H PRN PRN tab 07/04/19 Amox/Clavulanate Tablet [Augmentin Tablet] 875 mg PO Q12H 3 Days #6 tab 07/04/19 Guaifenesin [Mucinex] 1,200 mg PO BID 10 Days #20 tab 07/04/19 Losartan Potassium 25 mg PO DAILY 30 Days #30 tab 07/04/19 Nicotine Polacrilex [Nicotine Gum] 4 mg PO Q2H PRN PRN #60 gum 07/04/19 Nicotine [Nicoderm Cq] 21 mg TRANSDERM. DAILY 30 Days #30 patch 07/04/19 Prednisone 10 mg PO DAILY 30 Days #30 tab 07/04/19
--- NOTE | 2019-07-04 11:33 | CASEMGMT ---
This RN CM to room to discuss discharge plan and pt states no concerns with going home at time of discharge. Pt states no need for any further resources at this time. Pt did not qualify for home oxygen at this time. Pt awaiting family to come pick her up later today. Marti ANGELES CM
[2019-07-04 11:38] LABS: Anion Gap 8 (5-15); BUN 28 mg/dL (7-18); BUN/Creat Ratio 26.4 RATIO (10-20); Calcium,Total 9.1 mg/dL (8.5-10.1); Chloride 105 mmol/L (98-107); Creatinine, Serum 1.06 mg/dL (0.55-1.02); EST Glomerular Filtration Rate 56 mL/min (>60); Est Glom Filt Rate - Afr Amer 68 mL/min (>60); Estimated Creatinine Clearance 52.84 ml/min; Glucose 208 mg/dL (74-106); Sodium Level 139 mmol/L (136-145)
== END 2019-07-04 13:41 | disposition home or self-care (01) | DRG 140 ==
LOC: ED 16:14 → PCU 17:56
PROVIDERS: Admitting Provider Internal Medicine; Emergency Provider Emergency Medicine; PCP Family Medicine; Visit Provider Internal Medicine
DX: J44.1 Chronic obstructive pulmonary disease with (acute) exacerbation (principal); I10 Essential (primary) hypertension; R09.02 Hypoxemia; E87.2 Acidosis; M79.7 Fibromyalgia; F32.9 Major depressive disorder, single episode, unspecified; F41.9 Anxiety disorder, unspecified; Z90.49 Acquired absence of other specified parts of digestive tract; G47.33 Obstructive sleep apnea (adult) (pediatric); K51.90 Ulcerative colitis, unspecified, without complications; E66.01 Morbid (severe) obesity due to excess calories; Z68.41 Body mass index [BMI] 40.0-44.9, adult; F17.210 Nicotine dependence, cigarettes, uncomplicated; B97.81 Human metapneumovirus as the cause of diseases classified elsewhere; J06.9 Acute upper respiratory infection, unspecified
CPT/HCPCS: 36415; 71045; 80048; 80053; 83036; 83605; 83735; 83880; 84484; 85025; 85027; 86703; 86704; 86705; 86706; 86708; 86709; 86803; 87040; 87340; 87449; 87633; 87804; 93005; 94640; 97802; 99251; 99283; 99285; 99406; J7030; J7050; A4216; G0463

== ENCOUNTER 2020-02-12 17:53 | Emergency (ER) | payer MEDICAID, SELFPAY ==
[2020-02-12 11:14] VITALS: BMI 43.5
[2020-02-12 17:54] VITALS: BP 162/113; PULSE 81; RESP 17; TEMP 36.2; O2SAT 97; BMI 43.7
--- NOTE | 2020-02-12 18:00 | RAD_ITS ---
STUDY: X-RAY - RIGHT KNEE REASON FOR EXAM: Female, 59 years old. CHRONIC RIGHT KNEE PAIN. NO INJURY. TECHNIQUE: 4 view(s) of the knee. COMPARISON: 11/03/2018 FINDINGS: Normal visualized distal femur. Normal visualized proximal tibia and fibula. Normal proximal tibiofibular articulation. There is moderate degenerative arthrosis of the medial femorotibial compartment with moderate joint space narrowing. Normal lateral femorotibial compartment. There is mild degenerative arthrosis of the patellofemoral articulation. The soft tissue structures are unremarkable. RAD/Knee 4 or More Views IMPRESSION: Stable bicompartmental osteoarthritis. Electronically Signed: Luke Gay MD at 18:36 EDT Tel , Service support ,
--- NOTE | 2020-02-12 18:02 | ED.DCSUM_ITS ---
History of Present Illness Chief Complaint: Lower Extremity Injury Informant: Patient Onset: Days Context: Gradual Onset Timing: Continuous Current Severity: Moderate Maximum Severity: Moderate Narrative: The patient is a 59-year-old female that presents to the emergency department with bilateral knee pain. She states she has a history of arthritis. She is actually scheduled to see a specialist, but not until early March. She states for the past few weeks, she is had some pain with ambulating. She states the knees have not given out, but they have been significantly stiff and tender. She has been taking Tylenol with little improvement. She denies any swelling. She denies any pain in the feet. She denies any chest pain or shortness of breath. Prior similar symptoms: No Recent Illness/Hospitalization: No Past Medical History - Allergies and Home Meds Allergies/Adverse Reactions: Allergies venom-honey bee [bee venom (honey bee)] Allergy (Verified 02/12/20 17:56) Anaphylaxis morphine Adverse Reaction (Verified 02/12/20 17:56) Vomiting Primary Care Physician: Luke Hutson MD [Primary Care Provider] - Prior records reviewed: Yes Past Medical History: - - COPD, fibromyalgia, arthritis Surgical History: noncontributory, cholecystectomy, - - cervical conization, colonoscopy with bx - being treated for ulcerative colitis, many surgeries on the neck for what sounds like and extensive AVM Smoking Status: Current every day smoker - Family History Maternal Family History: Reports: Diabetes Paternal Family History: Reports: No pertinent history Sibling Family History: Reports: Cancer - Sister with breast cancer and a brother she thinks of cancer....she does not know the primary Review of Systems General: Denies: Chills, Fever, Sweats Eyes: Denies: Visual changes - bilaterally, Diplopia ENT: Denies: Rhinorrhea, Sore throat Cardiovascular: Denies: Chest pain, Palpitations Respiratory: Denies: Dyspnea, Cough, Dyspnea on exertion Gastrointestinal: Denies: Abdominal pain, Nausea, Vomiting, Diarrhea, Melena, Hematochezia Genitourinary: Denies: Dysuria, Hematuria, Frequency Musculoskeletal: Reports: Arthralgias. Denies: Back pain, Extremity Pain Skin: Denies: Rash, Wounds Neurological: Denies: Headache, Weakness, Numbness Physical Exam Vital Signs/Narrative: Vital Signs Temp Pulse Resp BP Pulse Ox 02/12/20 17:54 97.2 F L 81 17 162/113 H 97 Inital Vital Signs reviewed: Yes General: Well nourished, Well developed, No Acute Distress Head: Normocephalic, Atraumatic Eyes: Perrl, EOMI ENT: Moist mucous membranes, No rhinorrhea Neck: Supple, Nontender Cardiovascular: Regular rate, Regular rhythm, No murmurs Respiratory: No distress, CTA bilaterally, Chest nontender Abdomen: Soft, Nontender, Nondistended, Normal bowel sounds Back: Nontender, Normal Inspection Extremities: No edema, Tenderness - Patient has tenderness over the medial compartment of bilateral knees with compression. The pulses are normal. There is no laxity. There is no pain with palpation along the venous return system. Skin: Normal color, No rash Neurological: Alert, Oriented x3, Cranial nerves II-XII grossly intact, Normal Strength, Normal Sensation Psychological: Normal affect, Normal Mood Diagnostic/Tx/Re-eval Clinical Impression(s) from Imaging Studies Knee X-Ray 02/12/20 18:00 IMPRESSION: Stable bicompartmental osteoarthritis. Electronically Signed: Luke Gay MD at 18:36 EDT Tel , Service support , Knee X-Ray 02/12/20 18:10 IMPRESSION: Stable bicompartmental osteoarthritis. Suprapatellar effusion. Electronically Signed: Luke Gay MD at 18:35 EDT Tel , Service support , - Medical Decision Making The patient has normal pulses of the lower extremity. There is no gross laxity of the knee. There is no erythema or edema. My suspicion is that this is likely exacerbation of her chronic arthritis. I did obtain plain films which showed rather significant arthritis. The patient was given oral analgesics with improvement. I will place her on a short burst of steroids and analgesics for symptom control. She will follow-up with orthopedics as scheduled. Impression 1. Exacerbation of bilateral knee arthritis ED Disposition - Plan for ED Patient: Disposition: Home or Assisted Living Instructions: ED Knee Pain [facility] Prescriptions: MethylPREDNISolone DosePak [Medrol DosePak] 4 mg PO UD #1 box Prescription Printed Hydrocodone Bitart/Apap 5-325 [[place] 5MG-325MG] 1 tab PO Q6H PRN PRN 3 Days #10 tab PRN Reason: Pain Prescription Printed Referrals: Luke Hutson MD [Primary Care Provider] -
[2020-02-12] MEDS: HYDROcodone Bitartrate/Apap 5/325 Tablet PO (18:07)
--- NOTE | 2020-02-12 18:10 | RAD_ITS ---
STUDY: X-RAY - LEFT KNEE REASON FOR EXAM: Female, 59 years old. CHRONIC LEFT KNEE PAIN. NO INJURY. TECHNIQUE: 4 view(s) of the knee. COMPARISON: 11/03/2018 FINDINGS: Normal visualized distal femur. Normal visualized proximal tibia and fibula. Normal proximal tibiofibular articulation. There is moderate degenerative arthrosis of the medial femorotibial compartment with moderate joint space narrowing. Normal lateral femorotibial compartment. There is mild degenerative arthrosis of the patellofemoral articulation. Suprapatellar effusion. RAD/Knee 4 or More Views IMPRESSION: Stable bicompartmental osteoarthritis. Suprapatellar effusion. Electronically Signed: Luke Gay MD at 18:35 EDT Tel , Service support ,
[2020-02-12 18:40] VITALS: BP 139/90; PULSE 62; RESP 15; O2SAT 96
[2020-02-12 18:53] VITALS: BP 124/80; PULSE 57; RESP 16; O2SAT 95
== END 2020-02-12 18:54 | disposition home or self-care (01) ==
LOC: ED 18:29
PROVIDERS: Emergency Provider Emergency Medicine; PCP Family Medicine
DX: M17.0 Bilateral primary osteoarthritis of knee (principal); F17.200 Nicotine dependence, unspecified, uncomplicated
CPT/HCPCS: 73564; 99281

== ENCOUNTER → 2020-02-29 20:14 | Outpatient (CLI) | payer MEDICAID, SELFPAY ==
[2020-02-12 11:14] VITALS: BMI 43.5
[2020-02-12 17:54] VITALS: BMI 43.7
== END ==
PROVIDERS: PCP Family Medicine; Referring Provider Internal Medicine Critical Care Medicine; Visit Provider Internal Medicine Critical Care Medicine
DX: G47.33 Obstructive sleep apnea (adult) (pediatric) (principal)
CPT/HCPCS: 95811

== ENCOUNTER → 2020-03-05 10:49 | Outpatient (CLI) | payer MEDICAID, SELFPAY ==
[2020-02-12 11:14] VITALS: BMI 43.5
[2020-02-12 17:54] VITALS: BMI 43.7
--- NOTE | 2020-03-05 11:40 | CT_ITS ---
STUDY: LOW DOSE CT LUNG CANCER SCREENING REASON FOR EXAM: Female, 59 years old. LUNG CANCER SCREENING. 1PPD X 40 YEARS. COPD RADIATION DOSAGE (If Supplied By Facility): CTDIvol = ( 4.02 ) mGy, DLP = ( 126.37 ) mGycm TECHNIQUE: No contrast was administered. Low dose technique was utilized (average mAS-38 and kVp 120). 1.25 mm axial source images with a slice interval of 1.25-mm were reconstructed in lung windows. 2.5 mm axial source images with a slice interval of 2.5-mm were reconstructed in lung windows. 5.0 mm axial source images with a slice interval of 5.0-mm were reconstructed in soft tissue windows. Nodule measured using lung windows on PACS and/or independent workstation with automated measurement of minimum and maximum diameter. Nodule measurement reported as average diameter rounded to the nearest whole number. Growth is defined as an increase ins size of greater than 1.5 mm. COMPARISON: None. NODULES: Focal pleural thickening is seen in the posterior lateral aspect of the right lower lobe. Minimal increased markings are seen in the underlying lateral aspect of the right lower lobe suggestive of scarring. There is blunting of the right costophrenic angle. Emphysema: Endobronchial lesion: Aorta: Focal atherosclerotic plaque formation of the aortic arch. Coronary arteries: Coronary artery calcification. Mediastinal nodes: Unremarkable. Other chest and abdominal findings: Mild degree of degenerative changes of the thoracic vertebrae. CT/Low Dose CT Lung Screening IMPRESSION: Lung-RADS category 2 - Continue annual screening with LDCT in 12 months. IMPORTANT NOTES FOR USE: ACR Lung-RADS Version 1.0 Assessment Categories Release Date: August 13, 2013 Category: Coded 0-4 bases on nodule(s) with highest degree of suspicion. Negative screen is defined as categories 1 and 2; a positive screen is defined as categories 3 and 4. Category 3 and 4A nodules that are unchanged on interval CT should be coded as category 2, and individuals returned to screening in 12 months. Category 4X: Category 3 or 4 nodules with additional imaging findings that increase the suspicion of lung cancer, such as spiculation, GGN that doubles in size in 1 year, enlarged lymph notes, etc. Category Modifiers: S (significant finding unrelated to lung cancer) and C (prior history of treated lung cancer) may be added to the 0-4 Lung-RADS Electronically Signed: Jorge A Farrell, at 12:50 EST , Service support ,
--- NOTE | 2020-03-07 12:53 | PFT ---
INTRODUCTION: The patient is a 59-year-old female who presents for pulmonary function studies secondary to a diagnosis of nicotine dependency. Respiratory therapy reports good patient effort. Bronchodilators were used during testing. INTERPRETATION: Forced expiration spirometry demonstrates no evidence of a large airways obstructive ventilatory defect. There was no significant response to aerosolized bronchodilators, based upon strict ATS criteria. Spirograms are of good quality and plateau normally. Body plethysmography was performed and reveals a decreased TLC to 4.2 L, 71% of predicted, indicative of a mild restrictive ventilatory impairment. Diffusing capacity by single breath CO is reduced at 55% of predicted. IMPRESSION: Mild restrictive ventilatory impairment with disproportionate reduction in diffusing capacity.
== END ==
PROVIDERS: PCP Family Medicine; Referring Provider Internal Medicine Critical Care Medicine; Visit Provider Internal Medicine Critical Care Medicine
DX: F17.210 Nicotine dependence, cigarettes, uncomplicated (principal)
CPT/HCPCS: 94060; 94726; 94729; G0297

== ENCOUNTER → 2020-03-07 12:38 | Outpatient (CLI) | payer MEDICAID, SELFPAY ==
[2020-02-12 11:14] VITALS: BMI 43.5
[2020-02-12 17:54] VITALS: BMI 43.7
[2020-03-07 13:37] VITALS: PULSE 101; PULSE 60; PULSE 84; PULSE 85; PULSE 91; PULSE 93; PULSE 97; PULSE 98; O2SAT 89; O2SAT 90; O2SAT 92; O2SAT 94
--- NOTE | 2020-03-09 10:45 | WT_ITS ---
PSN 6 Minute Walk Test - 6 Minute Walk Test 6 Minute Walk Test: 6 Minute Walk Test PSN:6-Minute Walk Test Start: 03/07/20 13:36 Freq: Status: Active Protocol: [id number].[id number] Document 03/07/20 13:37 ON LICENSE OF [facility] (Rec: 03/07/20 14:01 ON LICENSE OF [facility] [id number]) 6 Minute Walk Test Date Performed 03/07/20 Time Performed 12:30 Height 5 ft 6 in Weight: 274 lb Weight in Pounds 274.[address]: David Morales Assistive device used: None Pre-test Oxygen Delivery Method Room Air Pulse Ox (%) 94 Pulse Rate (60-100 beats/min) 84 Dyspnea [place] Scale (0-10) 0 1st minute Oxygen Delivery Method Room Air Pulse Ox (%) 92 Pulse Rate (60-100 beats/min) 91 Dyspnea [place] Scale (0-10) 1 Number of Rests Taken 0 2nd minute Oxygen Delivery Method Room Air Pulse Ox (%) 90 Pulse Rate (60-100 beats/min) 93 Dyspnea [place] Scale (0-10) 2 Number of Rests Taken 1 Reported Symptoms Increased Work of Breathing 3rd minute Oxygen Delivery Method Room Air Pulse Ox (%) 89 Pulse Rate (60-100 beats/min) 98 Dyspnea [place] Scale (0-10) 3 Number of Rests Taken 1 Reported Symptoms Increased Work of Breathing 4th minute Oxygen Delivery Method Room Air Pulse Ox (%) 92 Pulse Rate (60-100 beats/min) 97 Dyspnea [place] Scale (0-10) 3 Number of Rests Taken 0 Reported Symptoms Increased Work of Breathing 5th minute Oxygen Delivery Method Room Air Pulse Ox (%) 90 Pulse Rate (60-100 beats/min) 60 Dyspnea Marina Scale (0-10) 3 Number of Rests Taken 0 Reported Symptoms Increased Work of Breathing 6th minute Oxygen Delivery Method Room Air Pulse Ox (%) 89 Pulse Rate (60-100 beats/min) 101 H Dyspnea [place] Scale (0-10) 3 Number of Rests Taken 0 Reported Symptoms Increased Work of Breathing Post-test Oxygen Delivery Method Room Air Pulse Ox (%) 94 Pulse Rate (60-100 beats/min) 85 Dyspnea [place] Scale (0-10) 0 Full Laps Walked 13 Partial Lap, Number of Tiles Walked 32 Total Distance Walked (ft) 799 - Interpretation Interpretation: The patient ambulated 799 feet over the course of 6 minutes beginning on room air without assistive devices. Pretesting oxygen saturation was noted to be 94% on room air. With ambulation, the celia oxygen saturation was 89%. This represents a significant exertional oxygen desaturation. - Recommendations Recommendations: There is no indication for the use of supplemental oxygen at this time. However, close interval follow-up is recommended, given the degree of oxygen desaturation noted during this study.
== END ==
PROVIDERS: PCP Family Medicine; Referring Provider Internal Medicine Critical Care Medicine; Visit Provider Internal Medicine Critical Care Medicine
DX: F17.210 Nicotine dependence, cigarettes, uncomplicated (principal)
CPT/HCPCS: 94618

== ENCOUNTER → 2020-03-11 11:00 | Outpatient (CLI) | payer MEDICAID, SELFPAY ==
[2020-02-12 17:54] VITALS: BMI 43.7
== END ==
PROVIDERS: PCP Family Medicine; Visit Provider Nurse Practitioner Acute Care
DX: Z46.89 Encounter for fitting and adjustment of other specified devices (principal)

== ENCOUNTER → 2020-04-01 11:00 | Outpatient (CLI) | payer MEDICAID, SELFPAY ==
[2020-03-24 10:42] VITALS: BMI 43.2
== END ==
PROVIDERS: PCP Family Medicine; Referring Provider Nurse Practitioner Acute Care; Visit Provider Nurse Practitioner Acute Care
DX: Z46.89 Encounter for fitting and adjustment of other specified devices (principal)
CPT/HCPCS: 98960; G0463

== ENCOUNTER 2021-01-22 06:23 | Day surgery (SDC) | payer MEDICAID, SELFPAY ==
[2021-01-22] VITALS (7 sets, daily range): BP systolic 94–128; BP diastolic 49–94; PULSE 67–73; RESP 12–20; TEMP 35.9–36.5; O2SAT 95–100; BMI 37.9
[2021-01-22] MEDS: Lactated Ringers 1,000 ML 100 ML IV (07:04)
--- NOTE | 2021-01-22 07:30 | COLBX_PTH ---
PATIENT: JAMAAL PEÑA LOC: EN U#:[id number] AGE/SX: 60/F ROOM: RE01/22/[address]: Dr. Toy Coreas DO : 1960 BED: DIS: 01/22/2021 SPEC #: [id number] RECD: 01/22/21 10:25 STATUS: ANDERS AMBER #: [id number] SONI: 01/22/21 07:[address]: Toy Coreas DEPT: SURGICAL PATHOLOGY RECD BY: Cher Ribeiro ENTERED: 01/22/21 13:13 SP TYPE: COLON BX OTHR DR: Dr. Luke Hutson MD Tissues: A - Ileum, NOS B - COLON BIOPSY C - Cecum, NOS D - Rectum, NOS Procedures: Surgery Specimen Level IV HEADER OPERATION: Colonoscopy (MAC) PRE-OP DIAGNOSIS: Nonspecific colitis TISSUE SUBMITTED: A ? Biopsy of terminal ileum, B ? Biopsies of random colon, C ? Biopsy of cecal polyp, D ? Rectum biopsy MICROSCOPIC DIAGNOSIS A. Terminal ileum, biopsy: No pathologic change. B. Colon, random biopsy: No pathologic change. C. Cecal polyp, biopsy: Fragments of tubular adenoma. D. Rectum, biopsy: No pathologic change. AM:ryne 01/23/2021 MICROSCOPIC DESCRIPTION Slides are reviewed. GROSS DESCRIPTION A - Received in fixative is one container labeled with the patient's name and designated biopsy of terminal ileum. The specimen consists of multiple irregular fragments of light brooks soft tissue that in aggregate measure 1 x 0.5 x 0.1 cm. The specimen is totally submitted in one cassette. B - Received in fixative is one container labeled with the patient's name and designated biopsy of random colon. The specimen consists of multiple irregular fragments of light brooks soft tissue that in aggregate measure 2.5 x 0.5 x 0.1 cm. The specimen is totally submitted in one cassette. C - Received in fixative is one container labeled with the patient's name and designated biopsy of cecal polyp. The specimen consists of multiple irregular fragments of light brooks soft tissue that in aggregate measure 1 x 0.3 x 0.1 cm. The specimen is totally submitted in one cassette. D - Received in fixative is one container labeled with the patient's name and designated rectum biopsy. The specimen consists of one irregular fragment of light brooks soft tissue that measures 0.3 x 0.3 x 0.1 cm. The specimen is totally submitted in one cassette. / SJ:ryne 01/22/21 TC:5 CPT: 14469 x4
--- NOTE | 2021-01-22 07:35 | PCM.HP.BLA ---
History and Physical Date of Admission: 01/22/21 [facility] [address] [place] [address] OFFICE VISITDate of Service: 01/07/21 MR#:[id number]: JAMAAL PEÑA [facility] #:[id number]:1960 Provider:Toy Friend, DOAge/Sex: 60/F Location:[facility] [place].[facility]:Signed Intake Vital Signs 01/07/21 14:13 Height 5 ft 6 in Weight: 242 lb 6 oz BMI 39.1 Intake Visit Reasons: Colitis Is patient in pain?: No Allergies venom-honey bee [bee venom (honey bee)] Allergy (Verified 01/07/21 14:17) Anaphylaxis morphine Adverse Reaction (Verified 01/07/21 14:17) Vomiting Medications epinephrine 0.3 mg IM X1 PRN 11/27/15 [History Confirmed 01/07/21] emtricitabine-tenofovir (TDF) 1 tab PO DAILY 06/29/19 [History Confirmed 01/07/21] mirabegron 50 mg PO DAILY 06/29/19 [History Confirmed 01/07/21] albuterol sulfate 90 mcg/actuation aerosol inhaler 2 puff INHALATION Q4H PRN #18 g 03/24/20 [Rx Confirmed 01/07/21] bupropion HCl (smoking deter) 150 mg tablet,12 hr sustained-release(smoking deterrent) 150 mg PO BID #60 tab 03/24/20 [Rx Confirmed 01/07/21] diclofenac sodium 1 % topical gel 2 g TOPICAL .4 times daily g 03/24/20 [History Confirmed 01/07/21] bisacodyl 5 mg tablet,delayed release 5 mg PO ONCE #4 tab 01/07/21 [Rx Confirmed 01/07/21] polyethylene glycol 3350 17 gram/dose oral powder 17 g PO Q10-15M #238 g 01/07/21 [Rx Confirmed 01/07/21] Patient : No Nurse's Note: . [facility] Medical History Arthritis Chronic neck and back pain Colitis Incontinence Knee pain Shoulder pain Social History (Updated 03/25/20 @ 10:34 by Elza Deras IRON CUTTER, IRON CUTTER-C) Tobacco: How many years used: 40 alcohol intake: never HPI HPI Details: JAMAAL PEÑA, is a 60 F who presents to the office today for Colonoscopy performed 2014 with diagnosis of ulcerative colitis. She has not really been on any medicine since her diagnosis. She was on balsalazide. However that did not help with her diarrhea. She does not have any bleeding she has more constant diarrhea. She says that stress causes a trigger. She has diarrhea with urgency. She is experiencing some mild bloating. She denies any chest pain or shortness of breath. She has has not had any more endoscopic procedures. Her weight has been stable over the last year up until about 2 months ago where she has been going on intermittent fasting and has actually lost 30 pounds. She was did lose a total of 100 pounds in total. ROS Const Constitutional: Positive for frequent falls and weakness; No fatigue or weight change Eyes Eyes: No change in vision ENT ENT: Positive for difficulty swallowing; No tongue swelling or throat swelling Resp Respiratory: No cough or shortness of breath Cardio Cardiology: Positive for leg pain with exertion Gastro GI: Positive for abdominal pain, bloating, change in bowel habits, constipation, diarrhea, heartburn, difficulty swallowing and nausea/dyspepsia Genitourinary-Female: Positive for urinary incontinence Musc Musculoskeletal: Positive for abnormal gait, joint pain, back pain, joint swelling, muscle cramps, muscle weakness, numbness, stiffness, tingling, Arthritis, sciatica, leg pain at night and leg pain with exertion Skin Skin: No hair loss in leg, yellowing of the eye, itchy eyes, rash, skin ulcer or skin swelling Neuro Neurology: Positive for abnormal gait, weakness, frequent falls, numbness and tingling Psych Psychiatric: Positive for anxiety and Positive for depression Endo Endocrine: No fatigue or weight change Aller/Imm Allergy/Immunologic: No itchy eyes, throat swelling or tongue swelling Ab/Lymp Hematologic/Lymphatic: Positive for easy bruising Exam Const General: cooperative and comfortable Nutritional Appearance: average body habitus and well nourished [facility] Head: normal to inspection Ears: hearing grossly normal bilaterally Nose: external nose normal Face and sinus: normal facial exam Mouth: oral mucosae normal Throat: posterior oropharynx normal Eyes General: appearance normal, both eyes and all related structures Neck Neck: normal visual inspection Chest Chest palpation & inspection: normal inspection of the chest and normal palpation of entire chest wall Resp Effort & Inspection: normal respiratory effort Auscultation: Bilateral: Clear to Auscultation Cardio Palpation: normal PMI Rate: regular rate Rhythm: regular rhythm GI Inspection: normal to inspection Auscultation: normal bowel sounds Percussion: normal to percussion Palpation: no hepatosplenomegaly Skin General: no rashes or lesions noted Neuro General: patient alert Extrem General: normal to inspection Psych Affect: normal affect Assessment and Plan Assessment and Plan (1) Non-specific colitis: Plan - Dr. Yeager Friend, DO: She will undergo colonoscopy all the way to the terminal ileum to see which type of colitis she actually has. Her symptoms are of due to bowel syndrome which is present about 30% of people with IBD. He was finding alternatives, risk, benefits including not withstanding bleeding, infection, sepsis, perforation, need for emergent urgent . She have ASA of 1. Plan Details Other Medications: New: bisacodyl take 30 minutes prior to the prep for colonoscopy 5 mg PO ONCE 4 tabs 0RF polyethylene glycol 3350 (Miralax) 17 grams PO Q10-15M 238 grams 0RF This is an renal from when the patient was seen in the office. There has been no changes since the patient was seen in office.
--- NOTE | 2021-01-22 08:13 | OP.CCLET_ITS ---
12/17/2021 Luke Hutson Re : Colonoscopy procedure for Yecenia Martin Dear Caryl This procedure was performed on January. My impressions and recommendations are as follows: Impressions : - Moderate diverticulosis in the sigmoid colon, in the descending colon and at the splenic flexure. - One 5 mm polyp in the cecum, removed with a jumbo cold forceps. Resected and retrieved. - The examined portion of the ileum was normal. - The entire examined colon is normal. Biopsied. - The examined portion of the ileum was normal. Biopsied. - One 5 mm, non-bleeding polyp, removed with a jumbo cold forceps. Resected and retrieved. Biopsied. Recommendations : - Discharge patient to home. - Resume previous diet. - Continue present medications. - Await pathology results. - Repeat colonoscopy in 5 years for surveillance. - Return to GI office in 2 weeks. My findings are described in the full procedure note, which is enclosed. If I can be of further assistance, please feel free to contact me at . Sincerely, Toy Coreas, 01/22/2021 8:12:40 AM This report has been signed electronically.
--- NOTE | 2021-01-22 08:13 | OP.COLON_ITS ---
Patient Name: Yecenia Martin Procedure Date: 01/22/2021 7:40 AM Date of : 1960 Age: 60 Procedure: Colonoscopy Indications: Left-sided chronic ulcerative colitis Providers: Toy Coreas DO Medicines: Monitored Anesthesia Care Patient Profile: This is a 60 year old female. Refer to note in patient chart for documentation of history and physical. Last Colonoscopy: 10 years ago. Complications: No immediate complications. Procedure: Pre-Anesthesia Assessment: - Prior to the procedure, a History and Physical was performed, and patient medications and allergies were reviewed. The patient is competent. The risks and benefits of the procedure and the sedation options and risks were discussed with the patient. All questions were answered and informed consent was obtained. Patient identification and proposed procedure were verified by the physician in the pre-procedure area. Mental Status Examination: alert and oriented. Airway Examination: normal oropharyngeal airway and neck mobility. Respiratory Examination: clear to auscultation. CV Examination: normal. Prophylactic Antibiotics: The patient does not require prophylactic antibiotics. Prior Anticoagulants: The patient has taken no previous anticoagulant or antiplatelet agents. ASA Grade Assessment: II - A patient with mild systemic disease. After reviewing the risks and benefits, the patient was deemed in satisfactory condition to undergo the procedure. The anesthesia plan was to use moderate sedation / analgesia (conscious sedation). Immediately prior to administration of medications, the patient was re-assessed for adequacy to receive sedatives. The heart rate, respiratory rate, oxygen saturations, blood pressure, adequacy of pulmonary ventilation, and response to care were monitored throughout the procedure. The physical status of the patient was re-assessed after the procedure. After I obtained informed consent, the scope was passed under direct vision. Throughout the procedure, the patient's blood pressure, pulse, and oxygen saturations were monitored continuously. The Colonoscope was introduced through the anus and advanced to the cecum, identified by appendiceal orifice and ileocecal valve. The colonoscopy was performed without difficulty. The patient tolerated the procedure well. The quality of the bowel preparation was good. Moderate Sedation: Moderate (conscious) sedation was administered by the endoscopy nurse and supervised by the endoscopist. The patient's oxygen saturation, heart rate, blood pressure and response to care were monitored. Scope In: 7:49:12 AM Scope Out: 8:06:32 AM Total Procedure Duration Time 0 hours 17 minutes 20 seconds Findings: The perianal and digital rectal examinations were normal. Multiple large-mouthed diverticula were found in the sigmoid colon, descending colon and splenic flexure. A 5 mm polyp was found in the cecum. The polyp was sessile. The polyp was removed with a jumbo cold forceps. Resection and retrieval were complete. Verification of patient identification for the specimen was done. Estimated blood loss was minimal. The terminal ileum appeared normal. Impression: - Moderate diverticulosis in the sigmoid colon, in the descending colon and at the splenic flexure. - One 5 mm polyp in the cecum, removed with a jumbo cold forceps. Resected and retrieved. - The examined portion of the ileum was normal. - The entire examined colon is normal. Biopsied. - The examined portion of the ileum was normal. Biopsied. - One 5 mm, non-bleeding polyp, removed with a jumbo cold forceps. Resected and retrieved. Biopsied. Recommendation: - Discharge patient to home. - Resume previous diet. - Continue present medications. - Await pathology results. - Repeat colonoscopy in 5 years for surveillance. - Return to GI office in 2 weeks. Procedure Code(s): --- Professional --- 73330, Colonoscopy, flexible; with biopsy, single or multiple CPT copyright 2017 [employer]. All rights reserved. The codes documented in this report are preliminary and upon bottom cager review may be revised to meet current compliance requirements. Toy Coreas DO 01/22/2021 8:12:40 AM This report has been signed electronically. Number of Addenda: 1 Note Initiated On: 01/22/2021 7:40 AM Addendum Number: 1 Addendum Date: 12/17/2021 4:23:45 PM MAC was used instead of moderate sedation for this patient. Toy Coreas DO 12/17/2021 4:23:55 PM This report has been signed electronically.
== END 2021-01-22 09:14 ==
LOC: EN 06:24 → AC 06:25
PROVIDERS: PCP Family Medicine; Referring Provider Family Medicine; Visit Provider Internal Medicine Gastroenterology
PROC: 0DJD8ZZ Inspection of Lower Intestinal Tract, Via Natural or Artificial Opening Endoscopic (ICD-10-PCS; CPT 45378; principal; 2021-01-22 07:25)
DX: D12.0 Benign neoplasm of cecum (principal); K57.30 Diverticulosis of large intestine without perforation or abscess without bleeding; F17.210 Nicotine dependence, cigarettes, uncomplicated; F32.A Depression, unspecified; M19.90 Unspecified osteoarthritis, unspecified site; M54.2 Cervicalgia; M54.9 Dorsalgia, unspecified; G89.29 Other chronic pain; R32 Unspecified urinary incontinence; Z79.899 Other long term (current) drug therapy; Z87.19 Personal history of other diseases of the digestive system
CPT/HCPCS: 45380; 88305; J7120; J2405

== ENCOUNTER → 2021-04-01 15:49 | Outpatient (CLI) | payer MEDICAID, SELFPAY ==
[2021-04-01 17:38] LABS: Erythrocyte Sedimentation Rate 10 mm/hr (0-30)
[2021-04-01 17:46] LABS: CRP < 2.90 mg/L (0.0-3.0)
[2021-04-06 16:08] LABS: Beef <0.10 kU/L (Class 0); Clam <0.10 kU/L (Class 0); Codfish <0.10 kU/L (Class 0); Corn <0.10 kU/L (Class 0); Egg, White 0.16 kU/L (Class 0/I); Egg, Whole <0.10 kU/L (Class 0); Peanut <0.10 kU/L (Class 0); Pork <0.10 kU/L (Class 0); SCALLOP <0.10 kU/L (Class 0); SESAME SEED <0.10 kU/L (Class 0); Shrimp <0.10 kU/L (Class 0); Soybean <0.10 kU/L (Class 0); Walnut, (Food) <0.10 kU/L (Class 0); Wheat <0.10 kU/L (Class 0)
[2021-04-06 20:10] LABS: Chocolate <0.10 kU/L (Class 0)
== END ==
LOC: LABSPEC 15:50 → LAB 15:56
PROVIDERS: PCP Family Medicine; Referring Provider Internal Medicine Gastroenterology; Visit Provider Internal Medicine Gastroenterology
DX: K58.0 Irritable bowel syndrome with diarrhea (principal); R19.7 Diarrhea, unspecified
CPT/HCPCS: 36415; 85652; 86003; 86005; 86140

== ENCOUNTER 2023-12-22 15:18 | Emergency (ER) | payer MEDICAID, SELFPAY ==
[2023-12-22 15:19] VITALS: BP 106/75; PULSE 100; RESP 18; TEMP 36.2; O2SAT 94; BMI 32.8
[2023-12-22] MEDS: Lidocaine 1% (20 ml mdv) 20 ML Vial INFILT (16:04)
[2023-12-22] MEDS: Acetaminophen 500 MG Tablet 1000 MG PO (16:04)
--- NOTE | 2023-12-22 16:20 | EX.ED.DYSGE1 ---
HPI History of Present Illness Chief Complaint: Head Injury Informant: patient and spouse/S.O. Narrative Narrative: 63-year-old female presenting to the emergency room with head injury. Patient states she was vacuuming when she cut her head on a corner shelf. There is no loss of consciousness. She is not on any blood thinners. She also notes she is having pain in her right buttock that travels slightly down her leg. She states she has a long history of sciatica and is causing her discomfort particularly at night. She is wondering if there is any medicine that might help her with that. She states she does not need a tetanus shot. [facility] Medical History Rectal prolapse Irritable bowel syndrome with diarrhea Diarrhea Hx of blood diseases Wears glasses Wears dentures Depression Anxiety Marijuana use Arthritis Bladder disease Back pain Migraine headache History of vertigo Difficulty swallowing Hx of ulcerative colitis Heartburn Smoker CPAP (continuous positive airway pressure) dependence Hoarseness History of fibromyalgia History of pain when walking History of edema Hypertension Cardiology follow-up encounter History of echocardiogram History of stress test History of hemangioma History of ventral hernia Hx of benign neoplasm of larynx Incontinence Chronic neck and back pain Colitis Knee pain Shoulder pain Arthritis Home Medications ?Medication ?Instructions ?Recorded ?Last Taken ?Type epinephrine 0.3 mg/0.3 mL 0.3 mg IM X1 PRN Allergies 11/27/15 06/30/19 History injection, auto-injector emtricitabine 200 mg-tenofovir 1 tab PO DAILY was exposed to HIV 06/29/19 06/30/19 History disoproxil fumarate 300 mg tablet mirabegron 50 mg tablet,extended 50 mg PO DAILY bladder 06/29/19 06/30/19 History release 24 hr albuterol sulfate 90 mcg/actuation 2 puff inhalation Q4H PRN 03/24/20 Unknown Rx aerosol inhaler (Ventolin HFA) shortness of breath or wheezing #18 grams diclofenac sodium 1 % topical gel 2 g topical .4 times daily 03/24/20 Unknown History (Arthritis Pain (diclofenac)) bupropion HCl (smoking deter) 150 150 mg PO DAILY 01/19/21 Unknown History mg tablet,12 hr sustained-release(smoking deterrent) ciprofloxacin HCl 500 mg tablet 500 mg PO DAILY #7 tabs 10/08/21 Unknown Rx metronidazole 500 mg tablet 500 mg PO Q12H #14 tabs 01/23/21 Unknown Rx colestipol 1 gram tablet 2 g (2 x 1 gram) PO BID #120 tabs 02/05/21 Unknown Rx hyoscyamine sulfate 0.125 mg 0.125 mg sublingual BID-QID PRN 02/05/21 Unknown Rx sublingual tablet dyspepsia #30 tabs Allergy/AdvReac Type Severity Reaction Status Date / Time venom-honey bee (bee venom Allergy Anaphylaxis Verified 12/22/23 15:19 (honey bee)) morphine AdvReac Vomiting Verified 12/22/23 15:19 Surgical History History of hemangioma excision Hx of colonoscopy History of conization of cervix Hx laparoscopic cholecystectomy Social History Smoking Status: Current every day smoker tobacco type: cigarettes Tobacco: How many years used: 40 alcohol intake: never ROS ROS ED Constitutional Constitutional ED: Denies chills, fever(s) or weight loss Eyes Eyes: Denies change in vision or diplopia ENT ENT ED: Denies ear pain, rhinorrhea or sore throat Cardiovascular Cardiovascular: Denies chest pain, orthopnea, palpitations or racing heartbeat Respiratory/Chest Respiratory/Chest: Denies cough, dyspnea or orthopnea Gastrointestinal Gastrointestinal: Denies abdominal pain, diarrhea, nausea or vomiting Genitourinary Genitourinary ED: Denies dysuria, hematuria or urinary frequency Musculoskeletal Musculoskeletal: Reports back pain; Denies arthralgias or myalgias Integumentary Reports other Details: Right scalp laceration ; Denies abscess or rash Neurologic Neurologic: Denies headache(s) or weakness Psychiatric Psychiatric: Denies anxiety, depression, suicidal ideation or suicidal thoughts Endocrine Endocrinology: Denies polydipsia, polyphagia or polyuria Allergic/Immunologic Allergic/Immunologic ED: Denies mouth swelling, tongue swelling or urticaria EXAM Physical Exam Const Vital Signs: 12/22/23 15:18 12/22/23 15:19 Temperature 97.1 F L Temperature Source Temporal Pulse Rate 100 Respiratory Rate 18 Respiratory Effort Normal Non-Labored Respiratory Depth Normal Respiratory Pattern Normal Blood Pressure 106/75 Blood Pressure Mean 85 Pulse Ox 94 Oxygen Delivery Method Room Air Room Air Positive well nourished and well developed General Appearance ED: well developed HEENT Reports normocephalic and moist mucous membranes HEENT Narrative: 1 cm scalp laceration to the high right temporal parietal region. Is let urination and gaping. There is no active bleeding. No palpable bony depressions. Eyes PERRL and EOMs intact bilaterally Neck no lymphadenopathy, supple and no JVD Resp normal respiratory effort and clear to auscultation bilaterally Cardio regular rate, regular rhythm and no murmurs GI normal to inspection, nondistended, normoactive bowel sounds and non-tender Palpation: soft Back/Spine no CVA tenderness and normal ROM Back/Spine Narrative: Patient has some tenderness to the right buttock. Neurologically intact with no deficits. Extremity normal to inspection General Extremety ED: Negative for edema General Extremity: Negative for edema Neuro oriented x3 and CN's II-XII intact bilaterally Neuro Narrative: GCS 15 Sensorium / Orientation: alert Motor Exam: strength 5/5 throughout Psych mental status grossly normal Mood & Affect: Negative for depressed or tearful Skin no rashes or lesions noted and no wounds MDM MDM MDM Narrative Medical decision making narrative: Differential diagnosis includes but not limited to skull fracture or intracranial hemorrhage laceration sciatic, lumbar radiculopathy neurologic deficit nerve impingement Wound was locally anesthetized using 1% lidocaine washed with Shur-Clens and explored. It was closed using 2 simple interrupted Ethilon 4-0 sutures. Wound care discussed with the patient. Stitches will need to be removed 5 to 7 days. I can write for a few Flexeril for her pain from sciatica and would also recommend anti-inflammatories.. Follow-up with primary care if not improving History & Record Review Discussion w/independent historian: Patient and Significant other Discharge Plan Triage Chief Complaint: Head Injury ED Provider: Titus Edmondson Dx/Rx/DC Orders Prescriptions: No Action diclofenac sodium [Arthritis Pain (diclofenac)] 1 % gel 2 g TOPICAL .4 times daily Rx Instructions: apply to single elbow, wrist or hand; for hand includes palm/fingers/back of hand albuterol sulfate [Ventolin HFA] 90 mcg/actuation HFA aerosol inhaler 2 puff INHALATION Q4H PRN (Reason: shortness of breath or wheezing) Qty: 18 6RF colestipol 1 gram tablet 2 g PO BID Qty: 120 0RF hyoscyamine sulfate 0.125 mg tablet, sublingual 0.125 mg sublingual BID-QID PRN (Reason: dyspepsia) Qty: 30 0RF epinephrine 0.3 MG syringe 0.3 mg IM X1 PRN (Reason: Allergies) Patient Comments: bee venom emtricitabine-tenofovir (TDF) 1 EACH tablet 1 tab PO DAILY mirabegron 50 MG tablet extended release 24 hr 50 mg PO DAILY bupropion HCl (smoking deter) 150 mg tablet extended release 12 hr 150 mg PO DAILY metronidazole 500 mg tablet 500 mg PO Q12H Qty: 14 0RF Rx Instructions: Take one tab by mouth every twelve hours for seven days. ciprofloxacin HCl 500 mg tablet 500 mg PO DAILY Qty: 7 0RF Rx Instructions: Take one tab by mouth daily for seven days. Primary Care Provider: Luke Hutson Referrals: Luke Hutson MD [Primary Care Provider] - Print Language: Macedonian
== END 2023-12-22 16:35 | disposition home or self-care (01) ==
PROVIDERS: Emergency Provider Emergency Medicine; PCP Family Medicine; Referring Provider Emergency Medicine; Visit Provider Emergency Medicine
DX: S01.01XA Laceration without foreign body of scalp, initial encounter (principal); F17.210 Nicotine dependence, cigarettes, uncomplicated; X58.XXXA Exposure to other specified factors, initial encounter
CPT/HCPCS: 12001; 99282

== ENCOUNTER 2024-01-25 15:18 | Emergency (ER) | payer MEDICAID, SELFPAY ==
[2024-01-25 15:19] VITALS: BP 136/91; PULSE 75; RESP 18; TEMP 36.1; O2SAT 100
--- NOTE | 2024-01-25 15:31 | EDS_ITS ---
HPI History of Present Illness Chief Complaint: Allergic Reaction Detail of Chief Complaint: Allergic reaction to bee sting Informant: patient Narrative Narrative: Patient presents to the emergency department with complaint of a bee sting to her left forearm. Patient states that she was stung at approximately 2:30 PM. 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 Patient did not give herself the EpiPen because she only noticed a local reaction to her left forearm and did not have any difficulty swallowing or significant rash. She had no difficulty breathing. Patient states that she does have some subtle sensation of itching to her palms. Patient has not taken Benadryl or any other medications for this at this time. [facility] Medical History Rectal prolapse Irritable bowel syndrome with diarrhea Diarrhea Hx of blood diseases Wears glasses Wears dentures Depression Anxiety Marijuana use Arthritis Bladder disease Back pain Migraine headache History of vertigo Difficulty swallowing Hx of ulcerative colitis Heartburn Smoker CPAP (continuous positive airway pressure) dependence Hoarseness History of fibromyalgia History of pain when walking History of edema Hypertension Cardiology follow-up encounter History of echocardiogram History of stress test History of hemangioma History of ventral hernia Hx of benign neoplasm of larynx Incontinence Chronic neck and back pain Colitis Knee pain Shoulder pain Arthritis Home Medications ?Medication ?Instructions ?Recorded ?Last Taken ?Type epinephrine 0.3 mg/0.3 mL 0.3 mg IM X1 PRN Allergies 11/27/15 06/30/19 History injection, auto-injector emtricitabine 200 mg-tenofovir 1 tab PO DAILY was exposed to HIV 06/29/19 06/30/19 History disoproxil fumarate 300 mg tablet mirabegron 50 mg tablet,extended 50 mg PO DAILY bladder 06/29/19 06/30/19 History release 24 hr albuterol sulfate 90 mcg/actuation 2 puff inhalation Q4H PRN 03/24/20 Unknown Rx aerosol inhaler (Ventolin HFA) shortness of breath or wheezing #18 grams diclofenac sodium 1 % topical gel 2 g topical .4 times daily 03/24/20 Unknown History (Arthritis Pain (diclofenac)) bupropion HCl (smoking deter) 150 150 mg PO DAILY 01/19/21 Unknown History mg tablet,12 hr sustained-release(smoking deterrent) ciprofloxacin HCl 500 mg tablet 500 mg PO DAILY #7 tabs 10/08/21 Unknown Rx metronidazole 500 mg tablet 500 mg PO Q12H #14 tabs 01/23/21 Unknown Rx colestipol 1 gram tablet 2 g (2 x 1 gram) PO BID #120 tabs 02/05/21 Unknown Rx hyoscyamine sulfate 0.125 mg 0.125 mg sublingual BID-QID PRN 02/05/21 Unknown Rx sublingual tablet dyspepsia #30 tabs cyclobenzaprine 10 mg tablet 10 mg PO TID PRN Muscle Spasm #15 12/22/23 Unknown Rx TABLETS prednisone 20 mg tablet 20 mg PO BID #4 tabs 01/25/24 Unknown Rx Allergy/AdvReac Type Severity Reaction Status Date / Time venom-honey bee (bee venom Allergy Anaphylaxis Verified 01/25/24 15:21 (honey bee)) morphine AdvReac Vomiting Verified 01/25/24 15:21 Surgical History History of hemangioma excision Hx of colonoscopy History of conization of cervix Hx laparoscopic cholecystectomy Social History Smoking Status: Current every day smoker tobacco type: cigarettes Tobacco: How many years used: 40 alcohol intake: never ROS ROS ED Review of Systems ROS Unobtainable: other Constitutional Constitutional ED: Reports lethargy; Denies chills, fever(s), sweats or weight loss Eyes Eyes: Denies blurry vision, change in vision or diplopia ENT ENT ED: Denies rhinorrhea or sore throat Cardiovascular Cardiovascular: Denies chest pain, orthopnea or racing heartbeat Respiratory/Chest Respiratory/Chest: Denies cough, dyspnea, dyspnea on exertion, orthopnea or sputum Gastrointestinal Gastrointestinal: Denies abdominal pain, diarrhea, nausea or vomiting Genitourinary Genitourinary ED: Denies dysuria, hematuria or urinary frequency Musculoskeletal Musculoskeletal: Denies arthralgias, back pain, myalgias or neck pain Integumentary Reports rash and other Details: Redness and swelling to the left forearm ; Denies abscess or Abrasions Neurologic Neurologic: Denies headache(s) or weakness Psychiatric Psychiatric: Denies anxiety, depression or suicidal thoughts Endocrine Endocrinology: Denies polydipsia, polyphagia or polyuria Hematologic/Lymphatic Hematologic/Lymphatic: Denies easy bleeding, easy bruising or lymphadenopathy Allergic/Immunologic Allergic/Immunologic ED: Denies mouth swelling, tongue swelling or urticaria EXAM Physical Exam Const Vital Signs: 01/25/24 15:19 Temperature 96.9 F L Temperature Source Temporal Pulse Rate 75 Respiratory Rate 18 Blood Pressure 136/91 H Blood Pressure Mean 106 Pulse Ox 100 Oxygen Delivery Method Room Air Positive well nourished and well developed General Appearance ED: well developed and NAD HEENT Reports TM's clear and moist mucous membranes HEENT Narrative: No angioedema of the lip or tongue or oropharynx. No stridor on exam. normocephalic and atraumatic; Negative for trauma or tenderness Tympanic Membrane ED: Yes TM's clear Eyes PERRL and EOMs intact bilaterally General Eye ED: Negative for pale conjunctiva or scleral icterus Neck no lymphadenopathy, supple and no JVD General: Negative for tenderness Chest Wall inspection of chest normal and palpation of chest normal Chest: Negative for tenderness Resp normal respiratory effort and clear to auscultation bilaterally Resp Narrative: Lungs clear without wheezing. Effort and Inspection: Negative for respiratory distress or pain with movement Auscultation: wheezes; Negative for rhonchi or diminished lung sounds Cardio regular rate, regular rhythm, S1 normal heart sound, S2 normal heart sound and no murmurs Peripheral Pulses: pulses 2+ throughout GI normal to inspection, nondistended, normoactive bowel sounds, soft to palpation, non-tender, non-distended and no masses Back/Spine no CVA tenderness and no thoracic nor lumbar tenderness Extremity Extremity Narrative: Evaluation of the left forearm reveals an area of erythema slightly raised and circular measuring approximately 5 cm in diameter. No other rashes noted. General Extremety ED: Negative for edema General Extremity: Negative for edema Neuro oriented x3, CN's II-XII intact bilaterally, no sensory deficits noted and gait normal Sensorium / Orientation: awake, alert, oriented to person, oriented to place and oriented to time Motor Exam: strength 5/5 throughout and strength abnormal Psych mental status grossly normal Skin no rashes or lesions noted and no wounds MDM MDM MDM Narrative Medical decision making narrative: Patient presents to the emergency department with allergic reaction to a bee sting. Local reaction noted to the left forearm. She is not having any respiratory difficulty or signs of anaphylaxis at this time. Bee sting occurred an hour ago. I will treat her with prednisone orally as well as Benadryl orally and will observe her in the emergency department for an observation period. Patient comfortable with plan. Patient was observed in the emergency department for approximately 2 hours. She had frequent reevaluations. She did not develop any difficulty breathing or angioedema. No significant rash other than the localized reaction to the left forearm. This point I feel it safe to send her home. Patient has an EpiPen that she can use as needed. Patient will be given a prescription for prednisone for 2 more days. Advised to use Benadryl for the itching. She is to return if difficulty breathing, lip or tongue swelling, or condition should worsen anyway. Discharge Plan Triage Chief Complaint: Allergic Reaction ED Provider: Medhat Stephens Dx/Rx/DC Orders Clinical Impression: Allergic reaction to bee sting Instructions: ED BEE STING General Allergic Rxn, ED Allergic Reaction Local Other Prescriptions: New prednisone 20 mg tablet 20 mg PO BID Qty: 4 0RF No Action diclofenac sodium [Arthritis Pain (diclofenac)] 1 % gel 2 g TOPICAL .4 times daily Rx Instructions: apply to single elbow, wrist or hand; for hand includes palm/fingers/back of hand albuterol sulfate [Ventolin HFA] 90 mcg/actuation HFA aerosol inhaler 2 puff INHALATION Q4H PRN (Reason: shortness of breath or wheezing) Qty: 18 6RF colestipol 1 gram tablet 2 g PO BID Qty: 120 0RF hyoscyamine sulfate 0.125 mg tablet, sublingual 0.125 mg sublingual BID-QID PRN (Reason: dyspepsia) Qty: 30 0RF epinephrine 0.3 MG syringe 0.3 mg IM X1 PRN (Reason: Allergies) Patient Comments: bee venom emtricitabine-tenofovir (TDF) 1 EACH tablet 1 tab PO DAILY mirabegron 50 MG tablet extended release 24 hr 50 mg PO DAILY bupropion HCl (smoking deter) 150 mg tablet extended release 12 hr 150 mg PO DAILY cyclobenzaprine 10 mg tablet 10 mg PO TID PRN (Reason: Muscle Spasm) Qty: 15 0RF metronidazole 500 mg tablet 500 mg PO Q12H Qty: 14 0RF Rx Instructions: Take one tab by mouth every twelve hours for seven days. ciprofloxacin HCl 500 mg tablet 500 mg PO DAILY Qty: 7 0RF Rx Instructions: Take one tab by mouth daily for seven days. Primary Care Provider: Luke Hutson Referrals: Luke Hutson MD [Primary Care Provider] - Print Language: Kinyarwanda Disposition Disposition: Home, Self Care
[2024-01-25] MEDS: DiphenhydrAMINE 25 MG Capsule 50 MG PO (15:50)
[2024-01-25] MEDS: predniSONE 20 MG Tablet 60 MG PO (15:50)
[2024-01-25 17:19] VITALS: BP 130/71; PULSE 76; RESP 16; O2SAT 98
[2024-01-25 17:43] VITALS: BP 130/71; PULSE 76; RESP 16; TEMP 36.2; O2SAT 98
== END 2024-01-25 17:48 | disposition home or self-care (01) ==
PROVIDERS: Emergency Provider Emergency Medicine; PCP Family Medicine; Referring Provider Emergency Medicine; Visit Provider Emergency Medicine
DX: T63.444A Toxic effect of venom of bees, undetermined, initial encounter (principal); F17.210 Nicotine dependence, cigarettes, uncomplicated
CPT/HCPCS: 99283

== ENCOUNTER 2024-02-17 16:25 | Emergency (ER) | payer MEDICAID, SELFPAY ==
[2024-02-17 16:25] VITALS: BP 136/94; PULSE 90; RESP 18; TEMP 36.1; O2SAT 98; BMI 32.4
--- NOTE | 2024-02-17 17:50 | RAD_ITS ---
STUDY: X-RAY CHEST REASON FOR EXAM: Female, 63 years old. chest pain/ Fall TECHNIQUE: AP portable COMPARISON: July 03, 2019. FINDINGS: Mild chronic interstitial thickening in the right lower lobe. There is no demonstrated pleural abnormality. Normal size heart. Normal mediastinum and damaris. Normal visualized pulmonary arteries. Mildly calcified aortic arch and descending thoracic aorta. Normal visualized thoracic spine. Normal visualized ribs, clavicles, and shoulders. There is no demonstrated abnormality of the visualized soft tissue structures of the upper abdomen. RAD/Chest 1 View (Portable) IMPRESSION: Mild chronic interstitial changes at the right base. No acute cardiopulmonary pathology Electronically Signed: Sunil Serrano MD at 18:30 EDT ,
[2024-02-17 18:25] VITALS: BP 128/84; PULSE 69
--- NOTE | 2024-02-17 19:00 | CT_ITS ---
INDICATION: anterior left rib fracture EXAMINATION: CT CHEST WITHOUT CONTRAST - CT Chest W/O Contrast Injection TECHNIQUE: Helically acquired images were obtained of the chest. A radiation dose optimization technique was used for this scan. IV Contrast dosage and agent: None. COMPARISON: None. FINDINGS: LUNGS, PLEURA AND LARGE AIRWAYS: Mild atelectasis within the dependent portion of both lower lobes. There is also mild bibasilar interstitial thickening. No pleural effusion or thickening. No pneumothorax. THYROID: No thyroid lesions. HEART AND PERICARDIUM: Heart size is normal. No pericardial effusion. CORONARY ARTERIES: Multivessel coronary artery calcification VESSELS: Atherosclerotic changes of the aorta without evidence for aneurysm. MEDIASTINUM AND INO: No mediastinal or hilar adenopathy. Esophagus is unremarkable. No hiatal hernia. UPPER ABDOMEN: No acute pathology. BONES: Dorsal spine demonstrates moderate degenerative change. No acute fracture identified No suspicious lytic or blastic abnormality. CT/Chest without Contrast IMPRESSION: Mild atelectasis within the dependent portion of the lower lobes and mild bibasilar interstitial thickening. No acute cardiopulmonary pathology Electronically Signed: Sunil Serrano MD at 20:33 EDT ,
--- NOTE | 2024-02-17 19:04 | EDS_ITS ---
HPI History of Present Illness Chief Complaint: Chest Other Informant: patient and family Narrative Narrative: 63-year-old female brought to the emergency room for the evaluation of anterior left chest pain. Patient states that 1 week ago she fell after tripping on a board coming out of the barn. She states she has had worsening pain in the left anterior chest. She states it hurts very badly to take a deep breath. No fever no sputum production. She does note a slight cough. Patient notes the pain wraps along the ribs into the posterior aspect of her chest. She states she is not on any blood thinners. She is a smoker. [facility] Medical History High cholesterol Rectal prolapse Irritable bowel syndrome with diarrhea Diarrhea Hx of blood diseases Wears glasses Wears dentures Depression Anxiety Marijuana use Arthritis Bladder disease Back pain Migraine headache History of vertigo Difficulty swallowing Hx of ulcerative colitis Heartburn Smoker CPAP (continuous positive airway pressure) dependence Hoarseness History of fibromyalgia History of pain when walking History of edema Hypertension Cardiology follow-up encounter History of echocardiogram History of stress test History of hemangioma History of ventral hernia Hx of benign neoplasm of larynx Incontinence Chronic neck and back pain Colitis Knee pain Shoulder pain Arthritis Home Medications ?Medication ?Instructions ?Recorded ?Last Taken ?Type epinephrine 0.3 mg/0.3 mL 0.3 mg IM X1 PRN Allergies 11/27/15 06/30/19 History injection, auto-injector emtricitabine 200 mg-tenofovir 1 tab PO DAILY was exposed to HIV 06/29/19 06/30/19 History disoproxil fumarate 300 mg tablet mirabegron 50 mg tablet,extended 50 mg PO DAILY bladder 06/29/19 06/30/19 History release 24 hr albuterol sulfate 90 mcg/actuation 2 puff inhalation Q4H PRN 03/24/20 Unknown Rx aerosol inhaler (Ventolin HFA) shortness of breath or wheezing #18 grams diclofenac sodium 1 % topical gel 2 g topical .4 times daily 03/24/20 Unknown History (Arthritis Pain (diclofenac)) bupropion HCl (smoking deter) 150 150 mg PO DAILY 01/19/21 Unknown History mg tablet,12 hr sustained-release(smoking deterrent) ciprofloxacin HCl 500 mg tablet 500 mg PO DAILY #7 tabs 10/08/21 Unknown Rx metronidazole 500 mg tablet 500 mg PO Q12H #14 tabs 01/23/21 Unknown Rx colestipol 1 gram tablet 2 g (2 x 1 gram) PO BID #120 tabs 02/05/21 Unknown Rx hyoscyamine sulfate 0.125 mg 0.125 mg sublingual BID-QID PRN 02/05/21 Unknown Rx sublingual tablet dyspepsia #30 tabs cyclobenzaprine 10 mg tablet 10 mg PO TID PRN Muscle Spasm #15 12/22/23 Unknown Rx TABLETS prednisone 20 mg tablet 20 mg PO BID #4 tabs 01/25/24 Unknown Rx oxycodone-acetaminophen 5 mg-325 1 tab PO Q6H PRN PRN Pain 3 days 02/17/24 Unknown Rx mg tablet #12 TABLETS Allergy/AdvReac Type Severity Reaction Status Date / Time venom-honey bee (bee venom Allergy Anaphylaxis Verified 02/17/24 16:25 (honey bee)) morphine AdvReac Vomiting Verified 02/17/24 16:25 Surgical History History of hemangioma excision Hx of colonoscopy History of conization of cervix Hx laparoscopic cholecystectomy Social History Smoking Status: Current every day smoker tobacco type: cigarettes Tobacco: How many years used: 40 alcohol intake: never ROS ROS ED Constitutional Constitutional ED: Denies chills, fever(s) or weight loss Eyes Eyes: Denies change in vision or diplopia ENT ENT ED: Denies ear pain, rhinorrhea or sore throat Cardiovascular Cardiovascular: Reports chest pain; Denies orthopnea, palpitations or racing heartbeat Respiratory/Chest Respiratory/Chest: Reports cough; Denies dyspnea or orthopnea Gastrointestinal Gastrointestinal: Denies abdominal pain, diarrhea, nausea or vomiting Genitourinary Genitourinary ED: Denies dysuria, hematuria or urinary frequency Musculoskeletal Musculoskeletal: Denies arthralgias or myalgias Integumentary Denies abscess or rash Neurologic Neurologic: Denies headache(s) or weakness Psychiatric Psychiatric: Denies anxiety, depression, suicidal ideation or suicidal thoughts Endocrine Endocrinology: Denies polydipsia, polyphagia or polyuria Allergic/Immunologic Allergic/Immunologic ED: Denies mouth swelling, tongue swelling or urticaria EXAM Physical Exam Const Vital Signs: 02/17/24 16:25 02/17/24 18:18 02/17/24 18:25 Temperature 97 F L Temperature Source Temporal Pulse Rate 90 69 Respiratory Rate 18 Respiratory Effort Normal Non-Labored Blood Pressure 136/94 H 128/84 H Blood Pressure Mean 108 98 Pulse Ox 98 Oxygen Delivery Method Room Air 02/17/24 20:00 02/17/24 20:54 Temperature 98 F Temperature Source Pulse Rate 78 78 Respiratory Rate 16 Respiratory Effort Blood Pressure 145/82 H 145/82 H Blood Pressure Mean 103 103 Pulse Ox 99 Oxygen Delivery Method Positive well nourished and well developed General Appearance ED: well developed and NAD HEENT Reports normocephalic, head/scalp atraumatic and moist mucous membranes Eyes PERRL and EOMs intact bilaterally Neck full ROM, no lymphadenopathy, supple and no JVD Chest Wall Chest Narrative: Anterior left mid rib tenderness along the ribs into the posterior aspect. There is no subcutaneous emphysema. No palpable crepitance. No large hematomas are seen or felt. Resp normal respiratory effort and clear to auscultation bilaterally Cardio regular rate, regular rhythm and no murmurs GI normal to inspection, nondistended, normoactive bowel sounds and non-tender Palpation: soft Back/Spine no CVA tenderness and normal ROM Extremity normal to inspection General Extremety ED: Negative for edema General Extremity: Negative for edema Neuro oriented x3 and CN's II-XII intact bilaterally Sensorium / Orientation: alert Motor Exam: strength 5/5 throughout Psych mental status grossly normal Mood & Affect: Negative for depressed or tearful Skin no rashes or lesions noted and no wounds MDM MDM MDM Narrative Medical decision making narrative: Differential diagnosis includes but not limited to rib fracture costochondral separation contusion hematoma pneumothorax pneumonia hemothorax/pleural effusion Nursing placed protocol order for chest x-ray. My independent interpretation of plain film the chest is no acute process. Because of the patient's pain a CT of the chest was obtained. I do not see any acute fracture or hematoma formation in the soft tissues pneumothorax pleural effusion. Clinically this is chest wall contusion. Patient received a dose of oxycodone here in the department. We talked about anti-inflammatories and I can write for a few Percocet for severe pain. We talked about deep breathing exercises and other home care treat ments to help. Follow-up as needed return if worsening or concerns. Patient was advised that this can take several weeks to heal History & Record Review Discussion w/independent historian: Patient Radiography Diagnostic Testing: Clinical Impression(s) from Imaging Studies Chest X-Ray 02/17/24 17:50 IMPRESSION: Mild chronic interstitial changes at the right base. No acute cardiopulmonary pathology Electronically Signed: Sunil Serrano MD at 18:30 EDT , Chest CT 02/17/24 19:00 IMPRESSION: Mild atelectasis within the dependent portion of the lower lobes and mild bibasilar interstitial thickening. No acute cardiopulmonary pathology Electronically Signed: Sunil Serrano MD at 20:33 EDT , Discharge Plan Triage Chief Complaint: Chest Other ED Provider: Titus Edmondson Dx/Rx/DC Orders Clinical Impression: Chest pain, Chest wall contusion Instructions: ED Chest Wall Contusion Prescriptions: New oxycodone-acetaminophen 5-325 mg tablet 1 tab PO Q6H PRN PRN (Reason: Pain) 3 Days Qty: 12 0RF No Action diclofenac sodium [Arthritis Pain (diclofenac)] 1 % gel 2 g TOPICAL .4 times daily Rx Instructions: apply to single elbow, wrist or hand; for hand includes palm/fingers/back of hand albuterol sulfate [Ventolin HFA] 90 mcg/actuation HFA aerosol inhaler 2 puff INHALATION Q4H PRN (Reason: shortness of breath or wheezing) Qty: 18 6RF colestipol 1 gram tablet 2 g PO BID Qty: 120 0RF hyoscyamine sulfate 0.125 mg tablet, sublingual 0.125 mg sublingual BID-QID PRN (Reason: dyspepsia) Qty: 30 0RF epinephrine 0.3 MG syringe 0.3 mg IM X1 PRN (Reason: Allergies) Patient Comments: bee venom emtricitabine-tenofovir (TDF) 1 EACH tablet 1 tab PO DAILY mirabegron 50 MG tablet extended release 24 hr 50 mg PO DAILY bupropion HCl (smoking deter) 150 mg tablet extended release 12 hr 150 mg PO DAILY cyclobenzaprine 10 mg tablet 10 mg PO TID PRN (Reason: Muscle Spasm) Qty: 15 0RF prednisone 20 mg tablet 20 mg PO BID Qty: 4 0RF metronidazole 500 mg tablet 500 mg PO Q12H Qty: 14 0RF Rx Instructions: Take one tab by mouth every twelve hours for seven days. ciprofloxacin HCl 500 mg tablet 500 mg PO DAILY Qty: 7 0RF Rx Instructions: Take one tab by mouth daily for seven days. Primary Care Provider: Luke Hutson Referrals: Luke Hutson MD [Primary Care Provider] - 1 Week if not improving Activity Restrictions/Additional Instructions: I strongly recommend taking ibuprofen 600 mg every 8 hours over the next 5 to 6 days. Please take it with food. I wrote for some Percocet for additional pain control if needed. One of the risk is that you could develop pneumonia so as best you can take a deep breath several times per hour. Ribs and her chest wall generally takes several weeks to fully heal. You may find some benefit by using a throw pillow to hold up against her chest when you cough or you get up to move. Print Language: Romansh Disposition Disposition: Home, Self Care Discharge Date/Time: 02/17/24 21:06
[2024-02-17] MEDS: oxyCODONE 5 MG Tablet 10 MG PO (19:06)
[2024-02-17 20:00] VITALS: BP 145/82; PULSE 78
[2024-02-17 20:54] VITALS: BP 145/82; PULSE 78; RESP 16; TEMP 36.6; O2SAT 99
== END 2024-02-17 21:06 | disposition home or self-care (01) ==
PROVIDERS: Emergency Provider Emergency Medicine; PCP Family Medicine; Visit Provider Emergency Medicine
DX: S20.20XA Contusion of thorax, unspecified, initial encounter (principal); F17.210 Nicotine dependence, cigarettes, uncomplicated; W19.XXXA Unspecified fall, initial encounter
CPT/HCPCS: 71045; 71250; 99283

== ENCOUNTER → 2024-07-02 | Outpatient (CLI) | payer MEDICARE, SELFPAY ==
[2024-07-02 17:38] LABS: Erythrocyte Sedimentation Rate 6 mm/hr (0-30)
[2024-07-02 18:09] LABS: Hepatitis B Surface Antibody Nonreactive; Hepatitis B Surface Antigen Nonreactive (Nonreactive)
[2024-07-02 18:48] LABS: Ferritin 135 ng/mL (22-378); HIV Nonreactive (Nonreactive)
[2024-07-02 21:49] LABS: CRP < 3.00 mg/L (0.0-3.0); LDH 161 U/L (84-246)
[2024-07-05 07:07] LABS: HIV-1 RNA by PCR, Quant. < 20 copies/mL (.)
[2024-07-05 07:07] LABS: Calprotectin, Stool 21 ug/g (0-120)
[2024-07-10 10:08] LABS: ACCA 13 units (0-90); ALCA 3 units (0-60); AMCA 11 units (0-100); Absolute CD4 Helper 1400 /uL (359-1519); Basophils (Absolute) 0 x10E3/uL (0.0-0.2); Cytoplasmic Ab (C-ANCA) <1:20 titer (Neg:<1:20); Endomysial Antibody IgA Negative (Negative); Eosinophils 2 % (Not Estab.); Eosinophils (Absolute) 0.1 x10E3/uL (0.0-0.4); Hematocrit 38.8 % (34.0-46.6); Hemoglobin 12.6 g/dL (11.1-15.9); Hepatitis B Core AB IgM Negative (Negative); Hepatitis B Core Ab Total Negative (Negative); Hepatitis Be Ab Non Reactive (Negative); Hepatitis Be Ag Negative (Negative); Immature Granulocytes 0 % (Not Estab.); Immature Granulocytes Absolute 0 x10E3/uL (0.0-0.1); Immunoglobulin A 211 mg/dL (87-352); Immunoglobulin E 136 IU/mL (6-495); Immunoglobulin G 891 mg/dL (586-1602); Immunoglobulin M 41 mg/dL (26-217); Lymphs 35 % (Not Estab.); Lymphs (Absolute) 2.5 x10E3/uL (0.7-3.1); MCHC 32.5 g/dL (31.5-35.7); MCV 102 fL (79-97); Monocytes 4 % (Not Estab.); Monocytes (Absolute) 0.3 x10E3/uL (0.1-0.9); Neutrophils 59 % (Not Estab.); Neutrophils (Absolute) 4.2 x10E3/uL (1.4-7.0); Perinuclear Ab (P-ANCA) <1:20 titer (Neg:<1:20); Platelets 268 x10E3/uL (150-450); QNTFERON TB Mitogen Value > 10.00 IU/mL (.); QNTFERON TB Nil Value 0.04 IU/mL (.); QNTFERON TB1+ Ag Value 0.08 IU/mL (.); QNTFERON TB2+ Ag Value 0.02 IU/mL (.); QNTIFERON TB Positive Criteria Negative (Negative); RBC Count 3.82 x10E6/uL (3.77-5.28); RDW 11.8 % (11.7-15.4); WBC Count 7.2 x10E3/uL (3.4-10.8); gASCA 24 units (0-50); t-Transglutaminase IgA <2 U/mL (0-3)
== END | disposition home or self-care (01) ==
PROVIDERS: Referring Provider Internal Medicine Gastroenterology; Visit Provider Internal Medicine Gastroenterology
DX: K51.90 Ulcerative colitis, unspecified, without complications (principal); B20 Human immunodeficiency virus [HIV] disease; E03.9 Hypothyroidism, unspecified; B34.9 Viral infection, unspecified
CPT/HCPCS: 82728; 82784; 82785; 83516; 83615; 83993; 84443; 85652; 86036; 86037; 86140; 86255; 86361; 86480; 86671; 86703; 86704; 86705; 86706; 86707; 87340; 87350; 87493; 87536

== ENCOUNTER → 2024-07-03 | Outpatient (CLI) | payer MEDICARE, SELFPAY ==
[2024-07-05 16:08] LABS: Fats, Neutral Normal (.); Fats, Total Normal (.)
[2024-07-06 00:07] LABS: Pancreatic Elastase, Fecal 395 (>200)
== END | disposition home or self-care (01) ==
PROVIDERS: Referring Provider Internal Medicine Gastroenterology; Visit Provider Internal Medicine Gastroenterology
DX: K51.90 Ulcerative colitis, unspecified, without complications (principal)
CPT/HCPCS: 82274; 82653; 82705; 83630; 87177; 87209; 87329

== ENCOUNTER → 2024-07-31 | Outpatient (CLI) | payer MEDICARE, MEDICAID, SELFPAY ==
--- NOTE | 2024-07-31 14:53 | CT_ITS ---
PROCEDURE: ABDOMEN/PELVIS WITH CONTRAST 07/31/2024 REASON FOR EXAM: DIARRHEA Lower abdominal pain. IBS. TECHNIQUE: Abdomen and pelvis CT with intravenous contrast. Coronal and Sagittal reconstruction series were provided. PATIENT PREPARATION: Per protocol ORAL CONTRAST TYPE: Gastrografin AMOUNT: 30 mL CONTRAST: Isovue-300 VOLUME: 100 mL One or more dose reduction techniques were used (e.g., Automated exposure control, adjustment of the mA and/or kV according to patient size, use of iterative reconstruction technique. RADIATION DOSE SUMMARY: CTDlvol: 20 mGy DLP: 1944.66 mGycm COMPARISON: None FINDINGS: Lung bases: Unremarkable Liver: Normal size. No mass. Minimal central intrahepatic biliary ductal dilatation most likely secondary to prior cholecystectomy. Gallbladder: Surgically absent. Spleen: Normal size. There are multiple tiny hypodense nodules scattered throughout the spleen. These are not typical cysts. Correlation with ultrasound recommended for further evaluation. Pancreas: Normal size without evidence of mass surrounding inflammation or ductal dilation. Adrenals: Unremarkable Kidneys: Normal renal sizes. No hydronephrosis. 6 mm nonobstructive calculus in the upper pole of the right kidney. Bladder: A small amount of air is seen in the anterior aspect of the urinary bladder. Did the patient have Smith insertion? Reproductive Organs: Prior hysterectomy. Adnexal regions are unremarkable. Bowel: Colonic diverticulosis without diverticulitis. Appendix: The appendix is not identified. There is no inflammatory process identified in the right lower quadrant to suggest appendicitis. Lymph nodes: Unremarkable. Vasculature: Mild diffuse atherosclerotic calcifications are noted. Peritoneum / Retroperitoneum: No retroperitoneal lymphadenopathy. Bones: Degenerative changes of the spine. CT/Abdomen/Pelvis WITH Contrast IMPRESSION: Status post cholecystectomy. Sigmoid diverticulosis. Small amount of air seen in the anterior aspect of the urinary bladder. Did th e patient have recent instrumentation. Reading Location: [place] [id number]
[2024-07-31 15:31] LABS: CREATININE FINGERSTICK 1.4 mg/dL (0.55-1.02)
== END | disposition home or self-care (01) ==
LOC: CT 14:52
PROVIDERS: PCP Registered Nurse; Referring Provider Internal Medicine Gastroenterology; Visit Provider Internal Medicine Gastroenterology
DX: K51.90 Ulcerative colitis, unspecified, without complications (principal)
CPT/HCPCS: 74177; Q9967